=== PATIENT | male | born 1955 | race Caucasian/White ===

== ENCOUNTER 2016-05-03 07:20 | Day surgery (SDC) | payer BC ==
[2016-05-03] MEDS ORDERED: ACETAMINOPHEN 325 MG TABLET (FP) PO ONE (08:00)
[2016-05-03] MEDS ORDERED: DEXAMETHASONE INJECTION 20 MG, DIPHENHYDRAMINE 25 MG in SODIUM CHLORIDE 100 ML IVPB ONE (08:00)
[2016-05-03] MEDS ORDERED: SODIUM CHLORIDE IVPB ONE (08:30)
[2016-05-03] MEDS ORDERED: RITUXIMAB IVPB ONE (08:30)
[2016-05-03 08:38] LABS: MCH 28.2 pg (25.7-33.7); MCHC 32.7 g/dl (32.0-35.9); RDW 15.4 % (11.9-15.9); WHITE BLOOD COUNT 9.9 K/mm3 (4.0-10.0)
[2016-05-03 08:39] LABS: BASOPHIL 1.3 % (0-2.0); EOSINOPHIL 2.1 % (0-4.5); MEAN PLT VOLUME 8.9 fl (7.5-11.1); NEUTROPHILS 66.1 % (42.8-82.8); PLATELET COUNT 170 K/MM3 (134-434)
[2016-05-03 09:37] VITALS: BMI 38.4
[2016-05-03] MEDS ORDERED: SODIUM CHLORIDE 250 ML IV ONE (12:00)
[2016-05-03 18:18] VITALS: PULSE 92
[2016-05-03 18:42] VITALS: BP 159/90; TEMP 98
== END 2016-05-03 18:53 | disposition home or self-care (01) ==
LOC: JONCCHEMO 07:20 → J7W 07:20 → JONCCHEMO 18:53
PROVIDERS: ATTEND Internal Medicine Hematology & Oncology
DX: Z51.11 Encounter for antineoplastic chemotherapy (principal); C83.08 Small cell B-cell lymphoma, lymph nodes of multiple sites; I10 Essential (primary) hypertension; E11.9 Type 2 diabetes mellitus without complications; E78.00 Pure hypercholesterolemia, unspecified; M19.90 Unspecified osteoarthritis, unspecified site
CPT/HCPCS: 96361; 96367; 96413; 96415; J9310; 36415; 85025

== ENCOUNTER 2016-06-28 07:01 | Day surgery (SDC) | payer BC ==
[2016-06-28] MEDS ORDERED: DIPHENHYDRAMINE 25 MG in SODIUM CHLORIDE 50 ML IVPB ONE (08:00)
[2016-06-28] MEDS ORDERED: ACETAMINOPHEN 325 MG TABLET (FP) PO ONE (08:00)
[2016-06-28] MEDS ORDERED: DEXAMETHASONE INJECTION 20 MG in SODIUM CHLORIDE 50 ML IVPB ONE (08:00)
[2016-06-28] MEDS ORDERED: SODIUM CHLORIDE IVPB ONE (08:30)
[2016-06-28] MEDS ORDERED: RITUXIMAB IVPB ONE (08:30)
[2016-06-28 08:39] LABS: MCH 28.5 pg (25.7-33.7); MCHC 33.2 g/dl (32.0-35.9); MEAN CELL VOLUME 85.7 fl (80-96); MEAN PLT VOLUME 9.2 fl (7.5-11.1); PLATELET COUNT 200 K/MM3 (134-434); RDW 15.4 % (11.9-15.9); WHITE BLOOD COUNT 8.2 K/mm3 (4.0-10.0)
[2016-06-28 10:16] LABS: PLATELET ESTIMATE ADEQUATE (NORMAL)
[2016-06-28 10:38] LABS: CALCIUM 9.9 mg/dL (8.5-10.1)
[2016-06-28 10:44] LABS: BILIRUBIN,DIRECT 0.1 mg/dL (0.0-0.2); BILIRUBIN,TOTAL 0.6 mg/dL (0.2-1.0); TOT PROT 6.9 g/dl (6.4-8.2); URIC ACID 5.5 mg/dL (2.6-7.2)
[2016-06-28] MEDS ORDERED: SODIUM CHLORIDE 250 ML IV ONE (12:54)
[2016-06-28] MEDS ORDERED: INSULIN (NOVOLOG) ASPART 100 UNITS/ML 10ML VIAL SQ ONE (14:45)
[2016-06-28 18:20] VITALS: BP 142/76; PULSE 78; TEMP 98.4
== END 2016-06-28 18:45 | disposition home or self-care (01) ==
LOC: JONCCHEMO 07:01 → J7W 09:36 → JONCCHEMO 18:45
PROVIDERS: ATTEND Internal Medicine Hematology & Oncology
PROC: 3E03305 Introduction of Other Antineoplastic into Peripheral Vein, Percutaneous Approach (ICD-10-PCS; principal; 2016-06-28)
PROC: 3E033GC Introduction of Other Therapeutic Substance into Peripheral Vein, Percutaneous Approach (ICD-10-PCS; 2016-06-28)
PROC: 3E0337Z Introduction of Electrolytic and Water Balance Substance into Peripheral Vein, Percutaneous Approach (ICD-10-PCS; 2016-06-28)
DX: Z51.11 Encounter for antineoplastic chemotherapy (principal); C83.08 Small cell B-cell lymphoma, lymph nodes of multiple sites
CPT/HCPCS: 96375; 96413; 96415; J1100; J1200; J9310; 36415; 80048; 80076; 83615; 84550; 85025; 96360; 96367

== ENCOUNTER 2016-08-24 07:22 | Day surgery (SDC) | payer BC ==
[2016-08-24 09:30] LABS: EOSINOPHIL 1.3 % (0-4.5); MCH 28.9 pg (25.7-33.7); MCHC 33.9 g/dl (32.0-35.9); MEAN CELL VOLUME 85.3 fl (80-96); MEAN PLT VOLUME 8.7 fl (7.5-11.1); NEUTROPHILS 66.4 % (42.8-82.8); PLATELET COUNT 223 K/MM3 (134-434); RDW 15.1 % (11.9-15.9); WHITE BLOOD COUNT 9.1 K/mm3 (4.0-10.0)
[2016-08-24] MEDS ORDERED: DIPHENHYDRAMINE 25 MG in SODIUM CHLORIDE 50 ML IVPB ONE (10:00)
[2016-08-24] MEDS ORDERED: SODIUM CHLORIDE 250 ML IV ONE (10:00)
[2016-08-24] MEDS ORDERED: ACETAMINOPHEN 325 MG TABLET (FP) PO ONE (10:00)
[2016-08-24] MEDS ORDERED: DEXAMETHASONE INJECTION 20 MG in SODIUM CHLORIDE 50 ML IVPB ONE (10:00)
[2016-08-24 10:01] LABS: ALBUMIN 4.3 g/dl (3.4-5.0); ALK PHOS 88 U/L (45-117); ANION GAP 11 (8-16); BILIRUBIN,DIRECT 0.2 mg/dL (0.0-0.2); BILIRUBIN,TOTAL 0.8 mg/dL (0.2-1.0); CALCIUM 10.7 mg/dL (8.5-10.1); CO2 24 mmol/L (21-32); COCKROFT - GAULT 101; CREATININE 1.2 mg/dL (0.7-1.3); GLUCOSE,RANDOM 164 mg/dL (74-106); LDH 166 U/L (87-241); SGOT/AST 37 U/L (15-37); SGPT/ALT 43 U/L (12-78); TOT PROT 7.2 g/dl (6.4-8.2); URIC ACID 6.5 mg/dL (2.6-7.2)
[2016-08-24] MEDS ORDERED: SODIUM CHLORIDE IVPB ONE (10:30)
[2016-08-24] MEDS ORDERED: RITUXIMAB IVPB ONE (10:30)
[2016-08-24] MEDS ORDERED: amLODIPine BESYLATE 5 MG TABLET (FP) PO ONE (12:30)
[2016-08-24 17:21] VITALS: TEMP 98.5
[2016-08-24 19:07] VITALS: BP 124/74; PULSE 73
== END 2016-08-24 20:16 | disposition home or self-care (01) ==
LOC: JONCCHEMO 07:22 → J7W 11:25 → JONCCHEMO 20:16
PROVIDERS: ATTEND Internal Medicine Hematology & Oncology
PROC: 3E04305 Introduction of Other Antineoplastic into Central Vein, Percutaneous Approach (ICD-10-PCS; principal; 2016-08-24)
PROC: 3E043GC Introduction of Other Therapeutic Substance into Central Vein, Percutaneous Approach (ICD-10-PCS; 2016-08-24)
PROC: 3E0437Z Introduction of Electrolytic and Water Balance Substance into Central Vein, Percutaneous Approach (ICD-10-PCS; 2016-08-24)
DX: Z51.11 Encounter for antineoplastic chemotherapy (principal); C83.08 Small cell B-cell lymphoma, lymph nodes of multiple sites
CPT/HCPCS: 36415; 80053; 80076; 82784; 83615; 84550; 85025; 96360; 96361; 96367; 96413; 96415; J9310

== ENCOUNTER 2016-10-19 07:30 | Day surgery (SDC) | payer BC ==
[2016-10-19] MEDS ORDERED: DIPHENHYDRAMINE 25 MG in SODIUM CHLORIDE 50 ML IVPB ONE (08:00)
[2016-10-19] MEDS ORDERED: ACETAMINOPHEN 325 MG TABLET (FP) PO ONE (08:00)
[2016-10-19] MEDS ORDERED: DEXAMETHASONE INJECTION 20 MG in SODIUM CHLORIDE 50 ML IVPB ONE (08:00)
[2016-10-19] MEDS ORDERED: SODIUM CHLORIDE IVPB ONE (08:30)
[2016-10-19] MEDS ORDERED: RITUXIMAB IVPB ONE (08:30)
[2016-10-19 09:19] LABS: BASOPHIL 0.5 % (0-2.0); EOSINOPHIL 1.7 % (0-4.5); MCHC 33.8 g/dl (32.0-35.9); MEAN CELL VOLUME 85.8 fl (80-96); MEAN PLT VOLUME 8.5 fl (7.5-11.1); NEUTROPHILS 62.6 % (42.8-82.8); PLATELET COUNT 190 K/MM3 (134-434); WHITE BLOOD COUNT 8.1 K/mm3 (4.0-10.0)
[2016-10-19 09:48] LABS: ALBUMIN 4.2 g/dl (3.4-5.0); ALK PHOS 92 U/L (45-117); ANION GAP 8 (8-16); BILIRUBIN,DIRECT 0.2 mg/dL (0.0-0.2); BILIRUBIN,TOTAL 0.7 mg/dL (0.2-1.0); CO2 26 mmol/L (21-32); CREATININE 1.1 mg/dL (0.7-1.3); GLUCOSE,RANDOM 186 mg/dL (74-106); MAGNESIUM 2.4 mg/dL (1.8-2.4); SGOT/AST 34 U/L (15-37); SGPT/ALT 51 U/L (12-78); TOT PROT 7.1 g/dl (6.4-8.2)
[2016-10-19] MEDS ORDERED: SODIUM CHLORIDE 250 ML IV ONE (12:54)
[2016-10-19 18:21] VITALS: BP 158/98; PULSE 69; TEMP 98
== END 2016-10-19 18:00 | disposition home or self-care (01) ==
LOC: JONCCHEMO 07:30 → J7W 10:18 → JONCCHEMO 18:00
PROVIDERS: ATTEND Internal Medicine Hematology & Oncology
DX: Z51.11 Encounter for antineoplastic chemotherapy (principal); C83.08 Small cell B-cell lymphoma, lymph nodes of multiple sites
CPT/HCPCS: 36415; 80053; 80076; 83735; 85025; 96361; 96367; 96375; 96413; 96415; J9310

== ENCOUNTER 2016-12-14 07:20 | Day surgery (SDC) | payer BC ==
[2016-12-14] MEDS ORDERED: SODIUM CHLORIDE 250 ML IV ONE (08:00)
[2016-12-14] MEDS ORDERED: DEXAMETHASONE INJECTION 20 MG in SODIUM CHLORIDE 50 ML IVPB ONE (08:30)
[2016-12-14] MEDS ORDERED: ACETAMINOPHEN 325 MG TABLET (FP) PO ONE (08:30)
[2016-12-14] MEDS ORDERED: DIPHENHYDRAMINE 25 MG in SODIUM CHLORIDE 50 ML IVPB ONE (08:30)
[2016-12-14] MEDS ORDERED: RITUXIMAB IVPB ONE (09:00)
[2016-12-14] MEDS ORDERED: SODIUM CHLORIDE IVPB ONE (09:00)
[2016-12-14 10:16] LABS: BASOPHIL 0.5 % (0-2.0); EOSINOPHIL 2.8 % (0-4.5); MCH 28.8 pg (25.7-33.7); MCHC 32.6 g/dl (32.0-35.9); MEAN CELL VOLUME 88.2 fl (80-96); MEAN PLT VOLUME 8.9 fl (7.5-11.1); NEUTROPHILS 58.9 % (42.8-82.8); PLATELET COUNT 239 K/MM3 (134-434); RDW 15.1 % (11.9-15.9); WHITE BLOOD COUNT 7.1 K/mm3 (4.0-10.0)
[2016-12-14 10:42] LABS: ALBUMIN 4.2 g/dl (3.4-5.0); ANION GAP 7 (8-16); BILIRUBIN,DIRECT 0.1 mg/dL (0.0-0.2); BILIRUBIN,TOTAL 0.5 mg/dL (0.2-1.0); CALCIUM 10.8 mg/dL (8.5-10.1); CO2 27 mmol/L (21-32); CREATININE 1.1 mg/dL (0.7-1.3); GLUCOSE,RANDOM 160 mg/dL (74-106); MAGNESIUM 2.4 mg/dL (1.8-2.4); SGOT/AST 27 U/L (15-37); SGPT/ALT 37 U/L (12-78)
[2016-12-14 10:44] LABS: ALK PHOS 103 U/L (45-117); TOT PROT 7.2 g/dl (6.4-8.2)
[2016-12-14] MEDS ORDERED: amLODIPine BESYLATE 5 MG TABLET (FP) PO SCH (11:15)
[2016-12-14 11:56] LABS: URIC ACID 5.6 mg/dL (2.6-7.2)
[2016-12-15 06:07] LABS: HEP B SURFACE AB Non Reactive (.)
[2016-12-19 18:31] VITALS: BP 138/79; PULSE 89; TEMP 98.5
== END 2016-12-14 19:08 | disposition home or self-care (01) ==
LOC: JONCCHEMO 07:20 → J7W 10:51 → JONCCHEMO 19:08
PROVIDERS: ATTEND Internal Medicine Hematology & Oncology
DX: Z51.11 Encounter for antineoplastic chemotherapy (principal); C83.08 Small cell B-cell lymphoma, lymph nodes of multiple sites
CPT/HCPCS: 36415; 80053; 80076; 82232; 83615; 83735; 84550; 85025; 85651; 86704; 86706; 86803; 96361; 96375; 96413; 96415; J9310

== ENCOUNTER 2017-01-23 12:21 | Inpatient (IN) | payer BC ==
--- NOTE | 2017-01-23 13:16 | PDOC ---
History of Present Illness <Mora Paz - Last Filed: 01/23/17 14:58> - History of Present Illness Initial Comments: 01/23/17 15:02 61 y/o M with a PMHx of lymphoma (last chemo was 1.5 months ago), HTN, IDDM, pancreatitis, arthritis, spinal stenosis presents to the ED with epigastric pain for one day. Patient describes the pain this morning as a sharp non radiating pain. Patient reports associated one episode of NBNB vomiting. He now reports the current pain as a dull non-radiating pain. Patients last BM was yesterday morning, was normal. Patient reports the pain is similar to his last episode of pancreatitis. Patient did not take any of his medications today with the exception of his insulin. Denies diarrhea, constipation. Denies back pain, dysuria, hematuria. Denies fever, chills. Denies CP, SOB, weakness PCP: Dr. Alden Izaguirre Oncologist: Dr. Artemio Marie Past Surgeries: cholecystectomy SHx: no alcohol, tobacco, drug use <Gracy Snow - Last Filed: 01/23/17 15:42> - General Chief Complaint: Pain, Acute Stated Complaint: ABD PAIN Time Seen by Provider: 01/23/17 13:16 Past History - Past Medical History Cancer: (Yes; lymphoma) Dementia: No Diabetes: Yes HTN: Yes - Immunization History Immunization Up to Date: Yes - Suicide/Smoking/Psychosocial Hx Smoking Status: No Smoking History: Former smoker Have you smoked in the past 12 months: No Number of Cigarettes Smoked Daily: 0 Information on smoking cessation initiated: No Hx Alcohol Use: Yes (OCCASIONAL) Drug/Substance Use Hx: No Substance Use Type: None Hx Substance Use Treatment: No <Mora Paz - Last Filed: 01/23/17 14:58> <Gracy Snow - Last Filed: 01/23/17 15:42> - Past Medical History Allergies/Adverse Reactions: Allergies Allergy/AdvReac Type Severity Reaction Status Date / Time No Known Allergies Allergy Verified 01/23/17 12:32 Home Medications: Ambulatory Orders Amlodipine Besylate [Norvasc -] 7.5 mg PO DAILY 01/23/17 Celecoxib [Celebrex] 100 mg PO BID 01/23/17 Cholecalciferol (Vitamin D3) [Vitamin D3] 2,000 unit PO DAILY 01/23/17 Insulin (Levemir) [Levemir Flexpen -] 10 units SQ DAILY 01/23/17 Insulin (Levemir) [Levemir Flexpen -] 20 units SQ HS 01/23/17 Insulin Aspart [Novolog] 100 unit SQ TID 01/23/17 Losartan Potassium 50 mg PO DAILY 01/23/17 Metformin HCl 500 mg PO DAILY 01/23/17 Review of Systems - Review of Systems Comments:: 01/23/17 15:02 GENERAL/CONSTITUTIONAL: No fever or chills. No weakness. HEAD, EYES, EARS, NOSE AND THROAT: No change in vision. No ear pain or discharge. No sore throat. GASTROINTESTINAL: (+) vomiting, epigastric pain. No diarrhea or constipation. GENITOURINARY: No dysuria, frequency, or change in urination. CARDIOVASCULAR: No chest pain or shortness of breath. RESPIRATORY: No cough, wheezing, or hemoptysis. MUSCULOSKELETAL: No joint or muscle swelling or pain. No neck or back pain. SKIN: No rash NEUROLOGIC: No headache, vertigo, loss of consciousness, or change in strength/ sensation. ENDOCRINE: No increased thirst. No abnormal weight change. HEMATOLOGIC/LYMPHATIC: No anemia, easy bleeding, or history of blood clots. ALLERGIC/IMMUNOLOGIC: No hives or skin allergy. <Gracy Snow - Last Filed: 01/23/17 15:42> *Physical Exam - Vital Signs Last Vital Signs Temp Pulse Resp BP Pulse Ox 99 F 69 19 158/100 96 01/23/17 12:32 01/23/17 12:32 01/23/17 12:32 01/23/17 12:32 01/23/17 12:32 <Mora Paz - Last Filed: 01/23/17 14:58> - Vital Signs Last Vital Signs Temp Pulse Resp BP Pulse Ox 99 F 69 19 158/100 96 01/23/17 12:32 01/23/17 12:32 01/23/17 12:32 01/23/17 12:32 01/23/17 12:32 - Physical Exam Comments: 01/23/17 15:02 GENERAL: Awake, alert, and fully oriented, in no acute distress, malodorous HEAD: No signs of trauma EYES: PERRLA, EOMI, sclera anicteric, conjunctiva clear ENT: Auricles normal inspection, hearing grossly normal, nares patent, oropharynx clear without exudates. Moist mucosa NECK: Normal ROM, supple, no lymphadenopathy, JVD, or masses LUNGS: Breath sounds equal, clear to auscultation bilaterally. No wheezes, and no crackles HEART: Regular rate and rhythm, normal S1 and S2, no murmurs, rubs or gallops ABDOMEN: Epigastric tenderness to palpation. Soft, normoactive bowel sounds. No guarding, no rebound. No masses EXTREMITIES: Normal range of motion, no edema. No clubbing or cyanosis. No cords, erythema, or tenderness BACK: No midline spinal tenderness in cervical/thoracic/lumbar region NEUROLOGICAL: Normal speech, cranial nerves intact, negative pronator drift, 5/ 5 strength in all 4 extremities, normal sensation to light touch in all 4 extremities, normal cerebellar exam, normal gait, normal reflexes and tone SKIN: Warm, Dry, normal turgor, no rashes or lesions noted. <Gracy Snow - Last Filed: 01/23/17 15:42> ED Treatment Course - LABORATORY CBC & Chemistry Diagram: 01/23/17 13:45 01/23/17 13:45 <Mora Paz - Last Filed: 01/23/17 14:58> - LABORATORY CBC & Chemistry Diagram: 01/23/17 13:45 01/23/17 13:45 - ADDITIONAL ORDERS Additional order review: Laboratory Results 01/23/17 13:45 Sodium 138 Potassium 4.5 Chloride 101 Carbon Dioxide 24 Anion Gap 13 BUN 18 Creatinine 1.1 Creat Clearance w eGFR > 60 Random Glucose 197 H D Calcium 9.5 Magnesium 2.0 Total Bilirubin 1.8 H D AST 571 H D ALT 738 H D Alkaline Phosphatase 126 H D Troponin I < 0.02 Total Protein 7.1 Albumin 4.1 Lipase 61114 H 01/23/17 13:45 RBC 5.30 MCV 85.1 MCHC 33.4 RDW 14.5 MPV 8.6 Neutrophils % 84.4 H D Lymphocytes % 7.8 L D Monocytes % 7.4 Eosinophils % 0.1 D Basophils % 0.3 - RADIOLOGY Radiograph Interpretation: 01/23/17 15:40 Abdominal US reported by Dr. Valarie Holley Impression: Examination is quite limited with the patient's body habitus/bowel gas. Hepatomegaly with fatty infiltration versus hepatocellular disease. Please correlate with liver enzymes. Status post cholecystectomy. Minimal dilatation of the common bile duct measuring 11 mm in diameter. Upper limits of normal in a postcholecystectomy patient distended. Nonvisualization of the pancreas and inferior vena cava - Medications Given in the ED: ED Medications Discontinued Medications Generic Name Dose Route Start Last Admin Trade Name Freq PRN Reason Stop Dose Admin Sodium Chloride 1,000 ml 01/23/17 13:42 01/23/17 13:54 Normal Saline - IV 01/23/17 13:43 1,000 ml ONCE ONE Administration <Gracy Snow - Last Filed: 01/23/17 15:42> Medical Decision Making - Medical Decision Making 01/23/17 13:58 61-year-old male history of lymphoma on chemotherapy every 2 months, pancreatitis status post cholecystectomy presents with sudden onset epigastric pain that feels like his previous episode of pancreatitis. Vitals unremarkable. Exam with epigastric tenderness palpation. Differential includes but is not limited to pancreatitis versus gastritis versus retained stone. -labs -ivf -pain control -abd US -reassess 01/23/17 14:59 Labs remarkable for abnormal LFTs, including lipase greater than 10,000. Patient is currently at ultrasound. Concern for possible retained stone and gallstone pancreatitis. In addition to IV bolus, standing fluids ordered, NPO. Case discussed with Dr. Izaguirre who will admit the patient. We have also consult the doctor Talon from GI and are awaiting a call back. <Mora Paz - Last Filed: 01/23/17 14:58> - Medical Decision Making 01/23/17 14:[address] Alden Izaguirre. [phone] 01/23/17 15:[address] Pedro Luis Álvarez. [phone] 01/23/17 15:[address] Reymundo Hernandez [phone] <Gracy Snow - Last Filed: 01/23/17 15:42> *DC/Admit/Observation/Transfer - Discharge Dispostion Admit: Yes - Attestations Physician Attestion: 01/23/17 15:01 Dr. Mora Walter MD, attest that this document has been prepared under my direction and personally reviewed by me in its entirety. I further attest, that it accurately reflects all work, treatment, procedures and medical decision -making performed by me. <Mora Paz - Last Filed: 01/23/17 14:58> - Attestations Scribe Attestion: 01/23/17 15:02 Documentation prepared by Gracy Snow, acting as medical nurse for Mora Paz MD. <Gracy Snow - Last Filed: 01/23/17 15:42> Diagnosis at time of Disposition: Abnormal LFTs, Acute pancreatitis - Discharge Dispostion Condition at time of disposition: Stable - Referrals Referrals: Alden Izaguirre MD [Primary Care Provider] -
[2017-01-23] MEDS ORDERED: SODIUM CHLORIDE 0.9% 500 ML INFUS.BAG IV ONE (13:42)
[2017-01-23 14:12] LABS: BASOPHIL 0.3 % (0-2.0); EOSINOPHIL 0.1 % (0-4.5); MCH 28.4 pg (25.7-33.7); MCHC 33.4 g/dl (32.0-35.9); MEAN CELL VOLUME 85.1 fl (80-96); MEAN PLT VOLUME 8.6 fl (7.5-11.1); NEUTROPHILS 84.4 % (42.8-82.8); PLATELET COUNT 232 K/MM3 (134-434); RDW 14.5 % (11.9-15.9); WHITE BLOOD COUNT 12.2 K/mm3 (4.0-10.0)
[2017-01-23] MEDS ORDERED: morphine CARPU-JECT 4 MG/1 ML DISP.SYRIN IVPUSH ONE ×2 (14:25→18:08)
[2017-01-23 14:40] LABS: ALBUMIN 4.1 g/dl (3.4-5.0); ALK PHOS 126 U/L (45-117); ANION GAP 13 (8-16); BILIRUBIN,TOTAL 1.8 mg/dL (0.2-1.0); CALCIUM 9.5 mg/dL (8.5-10.1); CO2 24 mmol/L (21-32); CREATININE 1.1 mg/dL (0.7-1.3); GLUCOSE,RANDOM 197 mg/dL (74-106); TOT PROT 7.1 g/dl (6.4-8.2)
[2017-01-23 14:43] LABS: TROPONIN I < 0.02 ng/ml (0.00-0.05)
[2017-01-23 14:47] LABS: SGOT/AST 571 U/L (15-37); SGPT/ALT 738 U/L (12-78)
[2017-01-23] MEDS ORDERED: SODIUM CHLORIDE 1,000 ML IV SCH (15:00)
[2017-01-23] MEDS ORDERED: morphine SULFATE 4 MG/ML VIAL ONE ×2 (15:40→18:11)
[2017-01-23] MEDS ORDERED: METRONIDAZOLE 500 MG PREMIXED 100 ML IVPB ONE ×2 (15:49→16:10)
[2017-01-23] MEDS ORDERED: LEVOFLOXACIN 750 MG IVPB 150 ML IVPB ONE ×2 (15:49→16:09)
--- NOTE | 2017-01-23 16:07 | HP ---
Admitting History and Physical - Primary Care Physician PCP: Alden Izaguirre - Admission Chief Complaint: abdominal pain History of Present Illness: Pt states that woke up around 3 AM with epigastric pain, thought that eat something bed last night; as pain was persistent through out the day pt decided to come to ER for evaluation. In ER pt was found to have acute pancreatitis. Pt with similar episode in 2013, due to cholelytiasis, had cholecystectomy (Dr. Brizuela). Pt was seen in ER, in the evening. History Source: Patient Limitations to Obtaining History: No Limitations - Past Medical History Cardiovascular: Yes: HTN Gastrointestinal: Yes: Pancreatitis Heme/Onc: Yes: Other (Lymphoma, receiving Chemo (per Dr. Marie), last Chemo in ) Endocrine: Yes: Diabetes Mellitus - Smoking History Smoking history: Former smoker Have you smoked in the past 12 months: No Aproximately how many cigarettes per day: 0 - Alcohol/Substance Use Hx Alcohol Use: Yes (OCCASIONAL) Home Medications - Allergies Allergies/Adverse Reactions: Allergies Allergy/AdvReac Type Severity Reaction Status Date / Time No Known Allergies Allergy Verified 01/23/17 12:32 - Home Medications Home Medications: Ambulatory Orders Amlodipine Besylate [Norvasc -] 7.5 mg PO DAILY 01/23/17 Celecoxib [Celebrex] 100 mg PO BID 01/23/17 Cholecalciferol (Vitamin D3) [Vitamin D3] 2,000 unit PO DAILY 01/23/17 Insulin (Levemir) [Levemir Flexpen -] 10 units SQ DAILY 01/23/17 Insulin (Levemir) [Levemir Flexpen -] 20 units SQ HS 01/23/17 Insulin Aspart [Novolog] 100 unit SQ TID 01/23/17 Losartan Potassium 50 mg PO DAILY 01/23/17 Metformin HCl 500 mg PO DAILY 01/23/17 Review of Systems - Review of Systems Constitutional: denies: Chills, Fever Eyes: denies: Blurred Vision, Double Vision HENT: denies: Difficult Swallowing, Ear Discharge, Ear Pain, Throat Pain Neck: denies: Decreased ROM, Tenderness Cardiovascular: denies: Chest Pain, Edema, Palpitations Respiratory: denies: Cough, SOB, Wheezing Gastrointestinal: reports: Nausea. denies: Abdominal Pain, Diarrhea Genitourinary: denies: Burning, Discharge, Dysuria, Flank Pain Musculoskeletal: denies: Back Pain, Joint Swelling Integumentary: denies: Bruising, Rash Neurological: denies: Change in LOC, Change in Speech, Numbness Endocrine: denies: Excessive Sweating, Intolerance to Cold Hematology/Lymphatic: denies: Easily Bruised, Excessive Bleeding Psychiatric: denies: Anxiety, Depression Physical Examination Vital Signs: Vital Signs Temperature 99 F 01/23/17 12:32 Pulse Rate 69 01/23/17 12:32 Respiratory Rate 19 01/23/17 12:32 Blood Pressure 158/100 01/23/17 12:32 O2 Sat by Pulse Oximetry (%) 96 01/23/17 12:32 Constitutional: Yes: No Distress, Calm Eyes: Yes: Conjunctiva Clear, EOM Intact, PERRL. No: Sclera Icterus HENT: Yes: Normocephalic. No: Epistaxis, Pharyngeal Erythema, Rhinnorhea Neck: Yes: Trachea Midline. No: Lymphadenopathy Cardiovascular: Yes: Regular Rate and Rhythm, S1, S2 Respiratory: Yes: Regular, CTA Bilaterally. No: Rales Gastrointestinal: Yes: Normal Bowel Sounds, Soft, Tenderness, Epigastrium. No: Tenderness, Rebound ...Rectal Exam: Yes: Deferred Musculoskeletal: No: Back Pain, Joint Stiffness, Joint Swelling Edema: LLE: Trace, RLE: Trace Neurological: Yes: Alert, Oriented, Cran Nerves II-XII Intact Labs: CBC, BMP 01/23/17 13:45 01/23/17 13:45 Lipase > 10K Assessment/Plan (Problem list is not available/ working) Acute Pancreatitis DM HTN Lymphoma Obesity IVF, Pain control GI consult MRCP To hold DM meds, cover with Regular insulin, per BGM AM labs
--- NOTE | 2017-01-23 16:21 | CON.GI ---
Consult Consult Specialty:: GI Referred by:: Dr. Irene Izaguirre Reason for Consultation:: Abdominal Pain - History of Present Illness Chief Complaint: Abdominal Pain History of Present Illness: 61M admitted through [facility] ER for evaluation of abdominal pain. he states that he was in his USOH up until 3AM this morning when he began experiencing upper abdominal pain. The pain was progressively worse promptin his ER visit. He stated that it was similar to the episode in 2014 when he was admitted for suspected pancreatitis and underwent laparoscopic cholecystectomy (gangrenous cholecystitis). MRI/MRCP at that time failed to reveal choledocholithiasis. In terms of new medications he has been taking celebrex for 4-5 days intermittelty secondary to chronic knee and hip pain. He denies current alcohol consumption. The last time that he received Rituxan for treatment of his B cell lymphoma was 1 month ago In ER he was currently receiving normal saline. Epigastric pain continues. 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 [employer] Place of : [facility] History of Recent Travel: No Home Medications - Allergies Allergies/Adverse Reactions: Allergies Allergy/AdvReac Type Severity Reaction Status Date / Time No Known Allergies Allergy Verified 01/23/17 12:32 - Home Medications Home Medications: Ambulatory Orders Amlodipine Besylate [Norvasc -] 7.5 mg PO DAILY 01/23/17 Celecoxib [Celebrex] 100 mg PO BID 01/23/17 Cholecalciferol (Vitamin D3) [Vitamin D3] 2,000 unit PO DAILY 01/23/17 Insulin (Levemir) [Levemir Flexpen -] 10 units SQ DAILY 01/23/17 Insulin (Levemir) [Levemir Flexpen -] 20 units SQ HS 01/23/17 Insulin Aspart [Novolog] 100 unit SQ TID 01/23/17 Losartan Potassium 50 mg PO DAILY 01/23/17 Metformin HCl 500 mg PO DAILY 01/23/17 Family Disease History - Family Disease History Family Disease History: Other: Father ( 90: CHF / Rheumatic heart disease), Mother (Alive: 89: Alzheimer's Dementia), Sister (1 healthy) Other Family History: No children. No family history of colorectal cancer or other GI malignancy Review of Systems - Review of Systems Constitutional: denies: Chills, Unintentional Wgt. Loss Cardiovascular: denies: Chest Pain Respiratory: denies: Cough, SOB Gastrointestinal: reports: Abdominal Pain, Bloating, Nausea. denies: Constipation, Diarrhea, Melena, Rectal Bleeding, Vomiting, Vomiting Blood Physical Exam-GI Vital Signs: Vital Signs Temperature 99 F 01/23/17 1600 Pulse Rate 68 01/23/17 1600 Respiratory Rate 19 01/23/17 1600 Blood Pressure 155/93 01/23/17 1600 O2 Sat by Pulse Oximetry (%) 95% on RA 01/23/17 1600 Constitutional: Yes: Calm Eyes: No: Sclera Icterus Cardiovascular: Yes: Regular Rate and Rhythm. No: Murmur Respiratory: Yes: CTA Bilaterally Gastrointestinal Inspection: Yes: Scars (healed trochar scars, + erythematoous circumscribed area left abdomen) ...Auscultate: Yes: Normoactive Bowel Sounds ...Palpate: Yes: Tenderness (marked TTP epigastrium with voluntary guarding) ...Percussion: No: Tympanitic Edema: Yes (Trace LE edema B/L) Neurological: Yes: Alert, Oriented Labs: CBC, BMP 01/23/17 13:45 01/23/17 13:45 01/23/17 13:45 Lipase 46654 H Hepatic Panel Total Bilirubin 1.8 mg/dL (0.2-1.0) H D 01/23/17 13:45 AST 571 U/L (15-37) H D 01/23/17 13:45 ALT 738 U/L (12-78) H D 01/23/17 13:45 Alkaline Phosphatase 126 U/L (45-117) H D 01/23/17 13:45 Albumin 4.1 g/dl (3.4-5.0) 01/23/17 13:45 12/14/16 09:45 Direct Bilirubin 0.1 D AST 27 D ALT 37 D Alkaline Phosphatase 103 Problem List - Problems (1) Acute pancreatitis Assessment/Plan: Suspect biliary pancreatitis given liver chemistry pattern BISAP score 1 Advise the following: NPO Monitored setting for admission Aggressive IV hydration with caution to cardiopulmonary status. Ordered Lactated ringers at 250cc for 2 liters followed by 200cc per hour. Ordered echocardiogram AM Labs ordered including fasting triglycerides MRI/MRCP of abdomen ordered by ER to evaluate pancreatic parenchyma as well as biliary tract Would cover with antibiotics given immunocompromised stated in case of retained CBD stone. ID consult I did discuss the possibility of the need for ERCP with Mr. Escudero, for further evaluation of biliary tract and for stone extraction if necessary. We discussed potential risks of the procedure like but not limited to bleeding, perforation requiring surgery to repair, infection, sedation medication effects , pancreatitis (5-10% of the cases) all of which could be potentially life threatening. He is amenable to this if it was felt to be necessary. Other recommendations to be determined by clinical course. Code(s): K85.9 - ACUTE PANCREATITIS, UNSPECIFIED * DO NOT USE *
[2017-01-23] MEDS: PIPERACILLIN/TAZOB 3.375 GM 3.375 GM in DEXTROSE 5%-WATER - 50 ML IVPB SCH ×3 (16:30→21:49)
[2017-01-23] MEDS: LACTATED RINGERS SOLUTION 1,000 ML IV SCH ×3 (17:53→21:48)
[2017-01-23] MEDS ORDERED: PIPERACILLIN/TAZOB 3.375 GM 50 ML IVPB ONE (18:20)
--- NOTE | 2017-01-23 18:48 | EKG ---
Test Reason : Blood Pressure : / mmHG Vent. Rate : 070 BPM Atrial Rate : 070 BPM P-R Int : 214 ms QRS Dur : 104 ms QT Int : 406 ms P-R-T Axes : 027 -51 -05 degrees QTc Int : 438 ms SINUS RHYTHM WITH 1ST DEGREE A-V BLOCK WITH PREMATURE ATRIAL COMPLEXES LEFT ANTERIOR HEMIBLOCK ATRIAL ABNORMALITY ABNORMAL ECG WHEN COMPARED WITH ECG OF 13-DEC-2013 09:02, PREMATURE ATRIAL COMPLEXES ARE NOW PRESENT VA INTERVAL HAS INCREASED QRS AXIS REPEAT EKG IF CLINICALLY INDICATED Confirmed by JOAN MERINO MD ([id number]) on 01/23/2017 6:48:06 PM Referred By: Confirmed By:JOAN MERINO MD
[2017-01-23] MEDS ORDERED: FLU VACCINE QUAD 60 MCG/0.5 ML (MDV 17-18) IM ONE (19:30)
[2017-01-23 19:32] VITALS: BMI 36.6
[2017-01-23] MEDS: INSULIN SLIDING SCALE (NOVOLOG) 1 VIAL SQ SCH (21:41)
[2017-01-23] MEDS: morphine SULFATE 4 MG/ML VIAL IVPUSH PRN (21:49)
[2017-01-23] MEDS: LOSARTAN POTASSIUM 50 MG TABLET (FP) PO SCH (21:49)
[2017-01-23] MEDS: amLODIPine BESYLATE 5 MG TABLET (FP) PO SCH (21:49)
[2017-01-24] MEDS ORDERED: LACTATED RINGERS SOLUTION 1,000 ML IV SCH (02:00)
[2017-01-24] MEDS: PIPERACILLIN/TAZOB 3.375 GM 3.375 GM in DEXTROSE 5%-WATER - 50 ML IVPB SCH ×5 (02:41→20:36)
[2017-01-24] MEDS: morphine SULFATE 4 MG/ML VIAL IVPUSH PRN ×3 (02:50→16:33)
[2017-01-24] MEDS: INSULIN SLIDING SCALE (NOVOLOG) 1 VIAL SQ SCH ×4 (08:12→21:16)
[2017-01-24 08:44] LABS: BASOPHIL 0.3 % (0-2.0); EOSINOPHIL 0.3 % (0-4.5); MCHC 33.9 g/dl (32.0-35.9); MEAN CELL VOLUME 85.6 fl (80-96); PLATELET COUNT 181 K/MM3 (134-434); RDW 14.4 % (11.9-15.9); WHITE BLOOD COUNT 14.5 K/mm3 (4.0-10.0)
[2017-01-24 09:28] LABS: INR 1.31 (0.82-1.09); PROTHROMBIN TIME (PATIENT) 14.8 SEC (9.98-11.88)
[2017-01-24 09:43] LABS: ALBUMIN 3.2 g/dl (3.4-5.0); ALK PHOS 103 U/L (45-117); AMYLASE 389 U/L (25-115); ANION GAP 12 (8-16); BILIRUBIN,TOTAL 2.9 mg/dL (0.2-1.0); CALCIUM 8.6 mg/dL (8.5-10.1); CO2 22 mmol/L (21-32); CREATININE 0.7 mg/dL (0.7-1.3); GLUCOSE,RANDOM 158 mg/dL (74-106); SGOT/AST 246 U/L (15-37); TOT PROT 5.8 g/dl (6.4-8.2)
[2017-01-24 09:51] LABS: SGPT/ALT 446 U/L (12-78)
[2017-01-24] MEDS: LOSARTAN POTASSIUM 50 MG TABLET (FP) PO SCH (10:08)
[2017-01-24] MEDS: amLODIPine BESYLATE 5 MG TABLET (FP) PO SCH (10:08)
--- NOTE | 2017-01-24 10:23 | PN ---
Progress Note (short form) - Note Progress Note: ID consult dictated imp/reccd 61 year old obese diabetic man with history of lymphoma last chemo 6 weeks ago admitted with sudden onset of abdominal pain severe with lowgrade fever of 99.5 and chills at home found to have pancreatitis with abnl lfts concern for biliary sepsis blood cultures zosyn MRCP today pancreatitis lymphoma DM Problem List - Problems (1) Biliary sepsis Code(s): K83.0 - CHOLANGITIS (2) Acute pancreatitis Code(s): K85.9 - ACUTE PANCREATITIS, UNSPECIFIED * DO NOT USE * (3) Lymphoma Code(s): C85.90 - NON-HODGKIN LYMPHOMA, UNSPECIFIED, UNSPECIFIED SITE (4) Diabetes mellitus Code(s): E11.9 - TYPE 2 DIABETES MELLITUS WITHOUT COMPLICATIONS
--- NOTE | 2017-01-24 11:03 | PN ---
Progress Note, Physician History of Present Illness: Pt w/o fever, chills, CP, SOB, V. Pt's abd pain is controlled with medication. - Current Medication List Current Medications: Active Medications Amlodipine Besylate (Norvasc -) 7.5 mg PO DAILY HARESH Last Admin: 01/24/17 10:08 Dose: 7.5 mg Lactated Ringer's (Lactated Ringers Solution) 1,000 mls @ 125 mls/hr IV ASDIR HARESH Last Admin: 01/23/17 17:53 Dose: 125 mls/hr Piperacillin Sod/Tazobactam (Sod 3.375 gm/ Dextrose) 50 mls @ 100 mls/hr IVPB Q6H-IV HARESH PRN Reason: Protocol Insulin Aspart (Novolog Vial Sliding Scale -) 1 vial SQ ACHS HARESH PRN Reason: Protocol Last Admin: 01/24/17 08:12 Dose: Not Given Losartan Potassium (Cozaar -) 50 mg PO DAILY HARESH Last Admin: 01/24/17 10:08 Dose: 50 mg Morphine Sulfate (Morphine Sulfate) 4 mg IVPUSH Q3H PRN PRN Reason: PAIN Last Admin: 01/24/17 10:12 Dose: 4 mg - Objective Vital Signs: Vital Signs Temperature 99.0 F 01/24/17 08:14 Pulse Rate 83 01/24/17 08:14 Respiratory Rate 20 01/24/17 08:14 Blood Pressure 136/67 01/24/17 08:14 O2 Sat by Pulse Oximetry (%) 93 L 01/23/17 21:00 Constitutional: Yes: No Distress, Calm Cardiovascular: Yes: Regular Rate and Rhythm, S1, S2 Respiratory: Yes: Regular, CTA Bilaterally. No: Rales Gastrointestinal: Yes: Normal Bowel Sounds, Soft, Tenderness, Epigastrium, Tenderness, Rebound, Other (no guarding) Edema: No Neurological: Yes: Alert, Oriented Labs: CBC, BMP 01/24/17 06:35 01/24/17 06:35 INR, PTT INR 1.31 (0.82-1.09) H 01/24/17 08:35 Problem List - Problems (1) History of pancreatitis Code(s): Z87.19 - PERSONAL HISTORY OF OTHER DISEASES OF THE DIGESTIVE SYSTEM (2) Acute pancreatitis Code(s): K85.9 - ACUTE PANCREATITIS, UNSPECIFIED * DO NOT USE * (3) Lymphoma Code(s): C85.90 - NON-HODGKIN LYMPHOMA, UNSPECIFIED, UNSPECIFIED SITE (4) Diabetes mellitus Code(s): E11.9 - TYPE 2 DIABETES MELLITUS WITHOUT COMPLICATIONS (5) Leukocytosis Code(s): D72.829 - ELEVATED WHITE BLOOD CELL COUNT, UNSPECIFIED Assessment/Plan (Problem list is not available/ working) IVF, ABtx per ID Pain control NPO except meds GI consult appreciated ID consult appreciated MRCP pending To hold DM meds, cover with Regular insulin, per BGM AM labs
--- NOTE | 2017-01-24 11:21 | CONS ---
INFECTIOUS DISEASE CONSULTATION DATE OF CONSULTATION: DATE OF DICTATION: 01/24/2017 REQUESTED BY: Alden Izaguirre MD This is a 61-year-old man who presented yesterday with sudden onset of acute abdominal pain earlier that morning, accompanied by low-grade fever and chills. He had a temperature of 99.5. He had had a similar episode 2 years earlier, when he was found to have gangrenous cholecystitis, and had a laparoscopic cholecystectomy. In the emergency room, he was noted to have elevated lipase and abnormal LFTs. He was admitted with plans today for an MRCP. I am asked to see him for antibiotic recommendations. He continues to have abdominal pain requiring pain medications and his T-maximum in the hospital has been 99.3. He received Zosyn, Levaquin, and Flagyl yesterday and Zosyn earlier this morning. Past medical history is notable for hypertension, osteoarthritis, spinal stenosis, diabetes. He is status post cholecystectomy. He has a history of lymphoma. He has a history of zoster in the past. He has no known drug allergies. MEDICATIONS: He takes Norvasc, Celebrex, vitamin D, insulin, losartan, and metformin as an outpatient. SOCIAL HISTORY: He lives alone. 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 A former smoker. Rare alcohol use. There is no history of any substance use. FAMILY HISTORY: Notable for heart disease in his father, his mother is alive at 89 with dementia, and he has a healthy sister. He has no children. REVIEW OF SYSTEMS: He has been having some intermittent, chronic knee and back pain, but this is unchanged from his baseline. He denies any vomiting. He continues to have midepigastric discomfort since admission. PHYSICAL EXAMINATION: General: He is an obese man in no acute distress, resting comfortably. Vital signs: Temperature currently is 99, pulse of 83, blood pressure 136/67, respiratory rate is 20. HEENT: He is normocephalic. His eyes are anicteric. Neck: Supple. He has some submandibular cervical adenopathy. Lungs: Clear to auscultation. Heart: Regular rate and rhythm. Abdomen: Soft. It is not distended. He has midepigastric discomfort to palpation. He has some angulo that he relates to his insulin injections. Extremities: Without edema. His labs are notable for a white count of 14.5 today, 12.2 before, hemoglobin is 13.8, platelets are 181. His INR is 1.3. BUN and creatinine are 13 and 0.7. Total bilirubin of 2.9, AST of 246, ALT of 443, lipase this morning has improved from 10,000 to 2406. No cultures have been sent and he is scheduled for an MRCP today. 1. In summary, this is a 61-year-old man with lymphoma admitted for pancreatitis on concern for possible biliary sepsis and concern for retained CBD stone. Would obtain blood cultures. Would continue Zosyn and await his MRCP. He is being followed closely by GI. 2. History of lymphoma on Rituxan. 3. History of diabetes. DION ECHEVERRIA M.D. [id number]
--- NOTE | 2017-01-24 12:09 | PN ---
GI Progress Note Subjective: No acute events Fluids @ 125 cc/hr. Had been ordered for 200cc/hr States feeling better overall. - Objective Vital Signs: Vital Signs Temperature 99.0 F 01/24/17 08:14 Pulse Rate 83 01/24/17 08:14 Respiratory Rate 20 01/24/17 08:14 Blood Pressure 136/67 01/24/17 08:14 O2 Sat by Pulse Oximetry (%) 93 L 01/23/17 21:00 Constitutional: Calm Eyes: No: Sclera Icterus Cardiovascular: Yes: Regular Rate and Rhythm Respiratory: Yes: CTA Bilaterally Gastrointestinal Inspection: No: Distention ...Auscultate: Yes: Normoactive Bowel Sounds ...Palpate: Yes: Tenderness (Improved upper abdominal tenderness to palpation) ...Percussion: No: Tympanitic Edema: Yes (trace LE edema) Neurological: Yes: Alert, Oriented Labs: CBC, BMP 01/24/17 06:35 01/24/17 06:35 INR 1.31 (0.82-1.09) H 01/24/17 08:35 01/23/17 01/23/17 01/24/17 13:45 13:45 06:35 Total Bilirubin 1.8 H D 2.9 H D AST 571 H D 246 H D ALT 738 H D 446 H D Alkaline Phosphatase 126 H D 103 C-Reactive Protein Total Amylase 908 H D 389 H D Lipase 44458 H 2406 H 01/24/17 06:35 Total Bilirubin AST ALT Alkaline Phosphatase C-Reactive Protein 8.9 H Total Amylase Lipase 01/24/17 06:35 Triglycerides 94 D - ....Imaging Ultrasound: Report Reviewed (11mm CBD, fatty liver) Problem List - Problems (1) Acute pancreatitis Assessment/Plan: Suspected gallstone pancreatitis Overall clinical improvement: Continue IV hydration: 200cc/hr Lactated Ringers Awaiting MRCP If pain conitinues to improve, trial of clear liquids for dinner Code(s): K85.9 - ACUTE PANCREATITIS, UNSPECIFIED * DO NOT USE * Qualifiers: Pancreatitis type: biliary Acute pancreatitis complication: unspecified Qualified Code(s): K85.10 - Biliary acute pancreatitis without necrosis or infection
[2017-01-24] MEDS: LACTATED RINGERS SOLUTION 1,000 ML IV SCH ×2 (12:13→16:49)
[2017-01-24] MEDS: LACTATED RINGERS SOLUTION 1,000 ML/1,000 ML INFUS.BAG IV SCH (21:14)
[2017-01-25] MEDS: PIPERACILLIN/TAZOB 3.375 GM 3.375 GM in DEXTROSE 5%-WATER - 50 ML IVPB SCH ×4 (02:50→21:46)
[2017-01-25] MEDS: INSULIN SLIDING SCALE (NOVOLOG) 1 VIAL SQ SCH ×4 (06:45→21:58)
[2017-01-25 08:35] LABS: BASOPHIL 0.4 % (0-2.0); EOSINOPHIL 0.6 % (0-4.5); MCH 28.7 pg (25.7-33.7); MCHC 33.1 g/dl (32.0-35.9); MEAN CELL VOLUME 86.7 fl (80-96); NEUTROPHILS 82.7 % (42.8-82.8); PLATELET COUNT 169 K/MM3 (134-434); RDW 14.6 % (11.9-15.9); WHITE BLOOD COUNT 16.6 K/mm3 (4.0-10.0)
[2017-01-25 08:37] LABS: MCH 28.8 pg (25.7-33.7); MCHC 33.4 g/dl (32.0-35.9); MEAN CELL VOLUME 86.3 fl (80-96); PLATELET COUNT 172 K/MM3 (134-434); RDW 14.2 % (11.9-15.9); WHITE BLOOD COUNT 16.8 K/mm3 (4.0-10.0)
[2017-01-25 09:11] LABS: ALK PHOS 107 U/L (45-117); AMYLASE 134 U/L (25-115); ANION GAP 9 (8-16); BILIRUBIN,TOTAL 4.8 mg/dL (0.2-1.0); CALCIUM 8.4 mg/dL (8.5-10.1); CO2 25 mmol/L (21-32); CREATININE 0.7 mg/dL (0.7-1.3); GLUCOSE,RANDOM 145 mg/dL (74-106); SGOT/AST 118 U/L (15-37); SGPT/ALT 290 U/L (12-78); TOT PROT 5.6 g/dl (6.4-8.2)
--- NOTE | 2017-01-25 10:06 | PN ---
Progress Note, Physician History of Present Illness: Pt w/o fever, chills, CP, SOB, V. Pt's abd pain is controlled with medication, feels a little better today. - Current Medication List Current Medications: Active Medications Lactated Ringer's (Lactated Ringers Solution) 1,000 mls @ 125 mls/hr IV ASDIR HARESH Last Admin: 01/24/17 16:49 Dose: Not Given Piperacillin Sod/Tazobactam (Sod 3.375 gm/ Dextrose) 50 mls @ 100 mls/hr IVPB Q6H-IV HARESH PRN Reason: Protocol Last Admin: 01/25/17 02:50 Dose: 100 mls/hr Lactated Ringer's (Lactated Ringers Solution) 1,000 ml in 1,000 mls @ 150 mls/ hr IV ASDIR HARESH Last Admin: 01/24/17 21:14 Dose: 150 mls/hr Insulin Aspart (Novolog Vial Sliding Scale -) 1 vial SQ ACHS [facility]ESH PRN Reason: Protocol Last Admin: 01/25/17 06:45 Dose: Not Given Losartan Potassium (Cozaar -) 50 mg PO DAILY [facility] Last Admin: 01/24/17 10:08 Dose: 50 mg Morphine Sulfate (Morphine Sulfate) 4 mg IVPUSH Q3H PRN PRN Reason: PAIN Last Admin: 01/24/17 16:33 Dose: 4 mg - Objective Vital Signs: Vital Signs Temperature 98.8 F 01/25/17 06:00 Pulse Rate 77 01/25/17 06:00 Respiratory Rate 20 01/25/17 06:00 Blood Pressure 161/76 01/25/17 06:00 O2 Sat by Pulse Oximetry (%) 96 01/24/17 21:00 Constitutional: Yes: No Distress, Calm Cardiovascular: Yes: Regular Rate and Rhythm, S1, S2 Respiratory: Yes: Regular, CTA Bilaterally. No: Rales Gastrointestinal: Yes: Normal Bowel Sounds, Soft, Tenderness, Epigastrium, Other (No guarding). No: Tenderness, Rebound Edema: LLE: Trace, RLE: Trace Neurological: Yes: Alert, Oriented Labs: CBC, BMP 01/25/17 07:30 INR, PTT INR 1.31 (0.82-1.09) H 01/24/17 08:35 Problem List - Problems (1) History of pancreatitis Code(s): Z87.19 - PERSONAL HISTORY OF OTHER DISEASES OF THE DIGESTIVE SYSTEM (2) Acute pancreatitis Code(s): K85.9 - ACUTE PANCREATITIS, UNSPECIFIED * DO NOT USE * Qualifiers: Pancreatitis type: biliary Acute pancreatitis complication: unspecified Qualified Code(s): K85.10 - Biliary acute pancreatitis without necrosis or infection (3) Lymphoma Code(s): C85.90 - NON-HODGKIN LYMPHOMA, UNSPECIFIED, UNSPECIFIED SITE (4) Diabetes mellitus Code(s): E11.9 - TYPE 2 DIABETES MELLITUS WITHOUT COMPLICATIONS (5) Leukocytosis Code(s): D72.829 - ELEVATED WHITE BLOOD CELL COUNT, UNSPECIFIED Assessment/Plan IVF, Abtx per ID Pain control Trial of clear liquids GI consult appreciated ID consult appreciated MRCP report was reviewd, still might need ERCP To hold DM meds, cover with Regular insulin, per BGM. TO f/u with GI AM labs
[2017-01-25] MEDS: LOSARTAN POTASSIUM 50 MG TABLET (FP) PO SCH (10:10)
[2017-01-25] MEDS: amLODIPine BESYLATE 5 MG TABLET (FP) PO SCH (10:10)
[2017-01-25] MEDS: amLODIPine BESYLATE 10 MG TABLET (FP) PO SCH (10:11)
[2017-01-25] MEDS ORDERED: PT OWN MED DRAWER 7, Y5N ONE (14:57)
[2017-01-25] MEDS: morphine SULFATE 4 MG/ML VIAL IVPUSH PRN (15:08)
--- NOTE | 2017-01-25 15:08 | PN ---
GI Progress Note Subjective: No acute events. Abdominal pain improved. tolerating clears - Objective Vital Signs: Vital Signs Temperature 98.8 F 01/25/17 06:00 Pulse Rate 77 01/25/17 06:00 Respiratory Rate 20 01/25/17 06:00 Blood Pressure 161/76 01/25/17 06:00 O2 Sat by Pulse Oximetry (%) 96 01/24/17 21:00 Constitutional: Calm Eyes: No: Sclera Icterus Cardiovascular: Yes: Regular Rate and Rhythm. No: Murmur Respiratory: Yes: CTA Bilaterally Gastrointestinal Inspection: No: Distention ...Auscultate: Yes: Normoactive Bowel Sounds ...Palpate: Yes: Tenderness (Mild TTP upper abdomen) ...Percussion: No: Tympanitic Edema: Yes (trace LE edema b/l) Neurological: Yes: Alert, Oriented Labs: CBC, BMP 01/25/17 07:30 01/25/17 07:30 INR, PTT INR 1.31 (0.82-1.09) H 01/24/17 08:35 Hepatic Panel Total Bilirubin 4.8 mg/dL (0.2-1.0) H D 01/25/17 07:30 AST 118 U/L (15-37) H D 01/25/17 07:30 ALT 290 U/L (12-78) H D 01/25/17 07:30 Alkaline Phosphatase 107 U/L (45-117) 01/25/17 07:30 Albumin 3.0 g/dl (3.4-5.0) L 01/25/17 07:30 Laboratory Tests 01/25/17 07:30 C-Reactive Protein 14.5 H D - ....Imaging MRI: Report Reviewed (Non dilated biliary tract) Problem List - Problems (1) Acute pancreatitis Assessment/Plan: Clinically improved. While transaminases and ALP elevation has improved, bilirubin continues to rise. Per discussion with Dr. Herrera, plan would be for ERCP tomorrow to exclude retained CBD stone not seen on MRCP. Mr. Escudero aware of plan Continue clears IV Abx unil CBD evaluated AM Labs Code(s): K85.9 - ACUTE PANCREATITIS, UNSPECIFIED * DO NOT USE * Qualifiers: Pancreatitis type: biliary Acute pancreatitis complication: unspecified Qualified Code(s): K85.10 - Biliary acute pancreatitis without necrosis or infection
[2017-01-25] MEDS ORDERED: INSULIN (NOVOLOG) ASPART 100 UNITS/ML 10ML VIAL ONE (17:07)
[2017-01-25] MEDS: ACETAMINOPHEN 325 MG TABLET (FP) PO PRN (20:50)
[2017-01-25] MEDS: LACTATED RINGERS SOLUTION 1,000 ML/1,000 ML INFUS.BAG IV SCH (20:51)
[2017-01-25] MEDS: LACTATED RINGERS SOLUTION 1,000 ML IV SCH (20:51)
[2017-01-26] MEDS: PIPERACILLIN/TAZOB 3.375 GM 3.375 GM in DEXTROSE 5%-WATER - 50 ML IVPB SCH ×4 (02:37→21:59)
[2017-01-26] MEDS: INSULIN SLIDING SCALE (NOVOLOG) 1 VIAL SQ SCH ×4 (06:08→22:08)
[2017-01-26 07:43] LABS: MCH 28.6 pg (25.7-33.7); MCHC 33.2 g/dl (32.0-35.9); MEAN CELL VOLUME 86.2 fl (80-96); MEAN PLT VOLUME 9.2 fl (7.5-11.1); PLATELET COUNT 175 K/MM3 (134-434); RDW 14.6 % (11.9-15.9); WHITE BLOOD COUNT 16.9 K/mm3 (4.0-10.0)
[2017-01-26] MEDS ORDERED: INDOMETHACIN 50 MG RECTAL SUPPOSITORY PR ONE (08:00)
[2017-01-26 08:06] LABS: INR 1.26 (0.82-1.09); PROTHROMBIN TIME (PATIENT) 14.2 SEC (9.98-11.88)
[2017-01-26 08:09] LABS: ACTIVATED PTT 31.6 SECONDS (26.9-34.4)
[2017-01-26 08:22] LABS: ALK PHOS 103 U/L (45-117); ANION GAP 11 (8-16); BILIRUBIN,DIRECT 1.5 mg/dL (0.0-0.2); BILIRUBIN,TOTAL 2.7 mg/dL (0.2-1.0); CALCIUM 8.4 mg/dL (8.5-10.1); CO2 24 mmol/L (21-32); CREATININE 0.6 mg/dL (0.7-1.3); GLUCOSE,RANDOM 148 mg/dL (74-106); SGOT/AST 54 U/L (15-37); SGPT/ALT 196 U/L (12-78); TOT PROT 5.8 g/dl (6.4-8.2)
[2017-01-26] MEDS ORDERED: PT OWN MED DRAWER 7, Y5N ONE (09:28)
[2017-01-26] MEDS: amLODIPine BESYLATE 10 MG TABLET (FP) PO SCH (09:28)
[2017-01-26] MEDS: LOSARTAN POTASSIUM 50 MG TABLET (FP) PO SCH (09:28)
[2017-01-26] MEDS: ALLOPURINOL 300 MG TABLET (FP) PO SCH (09:28)
--- NOTE | 2017-01-26 10:29 | PN ---
Progress Note, Physician History of Present Illness: Pt w/o fever, chills, CP, SOB, V. Pt's abd pain is controlled with medication, feels a little better; still not back to normal.. - Current Medication List Current Medications: Active Medications Acetaminophen (Tylenol -) 650 mg PO Q6H PRN PRN Reason: FEVER Last Admin: 01/25/17 20:50 Dose: 650 mg Allopurinol (Zyloprim -) 300 mg PO DAILY [facility] Last Admin: 01/26/17 09:28 Dose: 300 mg Amlodipine Besylate (Norvasc -) 10 mg PO DAILY [facility] Last Admin: 01/26/17 09:28 Dose: 10 mg Lactated Ringer's (Lactated Ringers Solution) 1,000 mls @ 125 mls/hr IV ASDIR HARESH Last Admin: 01/25/17 20:51 Dose: 125 mls/hr Piperacillin Sod/Tazobactam (Sod 3.375 gm/ Dextrose) 50 mls @ 100 mls/hr IVPB Q6H-IV [facility]ESH PRN Reason: Protocol Last Admin: 01/26/17 09:28 Dose: 100 mls/hr Lactated Ringer's (Lactated Ringers Solution) 1,000 ml in 1,000 mls @ 150 mls/ hr IV ASDIR HARESH Last Admin: 01/25/17 20:51 Dose: Not Given Insulin Aspart (Novolog Vial Sliding Scale -) 1 vial SQ ACHS [facility]ESH PRN Reason: Protocol Last Admin: 01/26/17 06:08 Dose: Not Given Losartan Potassium (Cozaar -) 50 mg PO DAILY [facility] Last Admin: 01/26/17 09:28 Dose: 50 mg Morphine Sulfate (Morphine Sulfate) 4 mg IVPUSH Q3H PRN PRN Reason: PAIN Last Admin: 01/25/17 15:08 Dose: 4 mg - Objective Vital Signs: Vital Signs Temperature 98.5 F 01/26/17 06:51 Pulse Rate 78 01/26/17 06:51 Respiratory Rate 20 01/26/17 06:51 Blood Pressure 153/76 01/26/17 06:51 O2 Sat by Pulse Oximetry (%) 96 01/25/17 21:00 Constitutional: Yes: No Distress, Calm Cardiovascular: Yes: Regular Rate and Rhythm, S1, S2 Respiratory: Yes: Regular, CTA Bilaterally Gastrointestinal: Yes: Normal Bowel Sounds, Soft, Tenderness, Tenderness, Epigastrium. No: Tenderness, Rebound Edema: No Neurological: Yes: Alert, Oriented Labs: CBC, BMP 01/26/17 06:00 01/26/17 06:00 INR, PTT INR 1.26 (0.82-1.09) H 01/26/17 06:00 Problem List - Problems (1) History of pancreatitis Code(s): Z87.19 - PERSONAL HISTORY OF OTHER DISEASES OF THE DIGESTIVE SYSTEM (2) Acute pancreatitis Code(s): K85.9 - ACUTE PANCREATITIS, UNSPECIFIED * DO NOT USE * Qualifiers: Pancreatitis type: biliary Acute pancreatitis complication: unspecified Qualified Code(s): K85.10 - Biliary acute pancreatitis without necrosis or infection (3) Lymphoma Code(s): C85.90 - NON-HODGKIN LYMPHOMA, UNSPECIFIED, UNSPECIFIED SITE (4) Diabetes mellitus Code(s): E11.9 - TYPE 2 DIABETES MELLITUS WITHOUT COMPLICATIONS (5) Leukocytosis Code(s): D72.829 - ELEVATED WHITE BLOOD CELL COUNT, UNSPECIFIED Assessment/Plan IVF, Abtx per ID Pain control Trial of clear liquids GI consult appreciated ID consult appreciated MRCP report was reviewd. For ERCP today, To hold DM meds, cover with Regular insulin, per BGM. AM labs
[2017-01-26] MEDS ORDERED: KCL 10 MEQ IVPB 10 MEQ/100 ML INFUS.BAG IVPB SCH (10:30)
[2017-01-26] MEDS ORDERED: POTASSIUM CHLORIDE 20 MEQ in SODIUM CHLORIDE 250 ML IVPB ONE (10:45)
[2017-01-26] MEDS ORDERED: PROPOFOL 20 ML ONE ×3 (13:14)
[2017-01-26] MEDS ORDERED: NEOSTIGMINE METHYLSULFATE 0.5 MG/ML - 10 ML MDV ONE (13:14)
[2017-01-26] MEDS ORDERED: fentaNYL CITRATE 250 MCG/5 ML VIAL ONE (13:14)
[2017-01-26] MEDS ORDERED: GLYCOPYRROLATE 0.2 MG/1 ML VIAL ONE ×3 (13:14)
[2017-01-26] MEDS ORDERED: PHYTONADIONE 10 MG/1 ML AMP IVPB ONE ×3 (14:18→17:00)
[2017-01-26] MEDS ORDERED: LACTATED RINGERS SOLUTION 1,000 ML/1,000 ML INFUS.BAG IV SCH (14:30)
--- NOTE | 2017-01-26 14:33 | PN ---
Progress Note (short form) - Note Progress Note: GI Procedure Note: Please see scanned ERCP report. Two small stone fragments were extracted from the CBD after sphincterotomy. There was bleeding from the sphincterotomy site which required epinephrine injection and stent insertion to control.
--- NOTE | 2017-01-26 16:44 | PN ---
Progress Note (short form) - Note Progress Note: retuerend from ercp s/p sphinterotomy with 2 small stones extracted still some abdominal discomfort Vital Signs Period Temp Pulse Resp BP Sys/Sanchez Pulse Ox Last 24 Hr 98.5 F-100.6 F 77-95 18-20 134-153/71-80 95-100 cor-rrr lungs clear abd soft,nt ext no edema CBC, BMP 01/26/17 06:00 01/26/17 06:00 a/p s/p ERCP- continue zosyn, f/u labs in am pancreatitis lymphoma DM Problem List - Problems (1) Biliary sepsis Code(s): K83.0 - CHOLANGITIS (2) Acute pancreatitis Code(s): K85.9 - ACUTE PANCREATITIS, UNSPECIFIED * DO NOT USE * Qualifiers: Pancreatitis type: biliary Acute pancreatitis complication: unspecified Qualified Code(s): K85.10 - Biliary acute pancreatitis without necrosis or infection (3) Lymphoma Code(s): C85.90 - NON-HODGKIN LYMPHOMA, UNSPECIFIED, UNSPECIFIED SITE (4) Diabetes mellitus Code(s): E11.9 - TYPE 2 DIABETES MELLITUS WITHOUT COMPLICATIONS
[2017-01-26 17:19] LABS: BASOPHIL 0.1 % (0-2.0); EOSINOPHIL 0.7 % (0-4.5); MCH 29.5 pg (25.7-33.7); MCHC 34.2 g/dl (32.0-35.9); MEAN CELL VOLUME 86.3 fl (80-96); MEAN PLT VOLUME 9.2 fl (7.5-11.1); NEUTROPHILS 82.1 % (42.8-82.8); PLATELET COUNT 194 K/MM3 (134-434); RDW 14.2 % (11.9-15.9); WHITE BLOOD COUNT 16.4 K/mm3 (4.0-10.0)
[2017-01-26 17:29] LABS: INR 1.31 (0.82-1.09); PROTHROMBIN TIME (PATIENT) 14.8 SEC (9.98-11.88)
[2017-01-26] MEDS: PANTOPRAZOLE SODIUM 80 MG in SODIUM CHLORIDE 100 ML IVPB SCH (18:35)
[2017-01-26] MEDS: LACTATED RINGERS SOLUTION 1,000 ML/1,000 ML INFUS.BAG IV SCH ×3 (19:00→23:50)
[2017-01-27] MEDS: PANTOPRAZOLE SODIUM 80 MG in SODIUM CHLORIDE 100 ML IVPB SCH ×4 (02:04→21:31)
[2017-01-27] MEDS: PIPERACILLIN/TAZOB 3.375 GM 3.375 GM in DEXTROSE 5%-WATER - 50 ML IVPB SCH ×4 (02:07→21:17)
[2017-01-27] MEDS: INSULIN SLIDING SCALE (NOVOLOG) 1 VIAL SQ SCH ×4 (06:52→21:18)
[2017-01-27] MEDS ORDERED: PT OWN MED DRAWER 7, Y5N ONE ×3 (08:27→16:39)
[2017-01-27 08:56] LABS: ALBUMIN 2.4 g/dl (3.4-5.0); ALK PHOS 87 U/L (45-117); AMYLASE 45 U/L (25-115); ANION GAP 11 (8-16); BILIRUBIN,DIRECT 0.9 mg/dL (0.0-0.2); BILIRUBIN,TOTAL 1.4 mg/dL (0.2-1.0); CALCIUM 7.8 mg/dL (8.5-10.1); CO2 23 mmol/L (21-32); CREATININE 0.9 mg/dL (0.7-1.3); FERRITIN 382.823 ng/ml (16.4-293.9); GLUCOSE,RANDOM 154 mg/dL (74-106); SGOT/AST 45 U/L (15-37); SGPT/ALT 131 U/L (12-78); TOT PROT 4.9 g/dl (6.4-8.2)
[2017-01-27] MEDS: amLODIPine BESYLATE 10 MG TABLET (FP) PO SCH (09:26)
[2017-01-27] MEDS: LOSARTAN POTASSIUM 50 MG TABLET (FP) PO SCH (09:26)
[2017-01-27] MEDS: ALLOPURINOL 300 MG TABLET (FP) PO SCH (09:27)
[2017-01-27 11:09] LABS: MCHC 33.2 g/dl (32.0-35.9); MEAN CELL VOLUME 87.4 fl (80-96); MEAN PLT VOLUME 9.2 fl (7.5-11.1); PLATELET COUNT 224 K/MM3 (134-434); RDW 14.5 % (11.9-15.9); WHITE BLOOD COUNT 16.9 K/mm3 (4.0-10.0)
--- NOTE | 2017-01-27 11:11 | PN ---
Progress Note, Physician History of Present Illness: Awake, alert Seated in bed Tolerating liquids No c/o abdominal pain Mild nausea No vomiting Low gared temp WBC slightly elevated - Current Medication List Current Medications: Active Medications Acetaminophen (Tylenol -) 650 mg PO Q6H PRN PRN Reason: FEVER Last Admin: 01/25/17 20:50 Dose: 650 mg Allopurinol (Zyloprim -) 300 mg PO DAILY [facility] Last Admin: 01/27/17 09:27 Dose: 300 mg Amlodipine Besylate (Norvasc -) 10 mg PO DAILY [facility] Last Admin: 01/27/17 09:26 Dose: 10 mg Piperacillin Sod/Tazobactam (Sod 3.375 gm/ Dextrose) 50 mls @ 100 mls/hr IVPB Q6H-IV HARESH PRN Reason: Protocol Last Admin: 01/27/17 08:32 Dose: 100 mls/hr Pantoprazole Sodium 80 mg/ (Sodium Chloride) 100 mls @ 10 mls/hr IVPB Q10H HARESH PRN Reason: 8 MG/HR Last Admin: 01/27/17 02:04 Dose: 10 mls/hr Lactated Ringer's (Lactated Ringers Solution) 1,000 ml in 1,000 mls @ 125 mls/ hr IV ASDIR [facility] Last Admin: 01/26/17 23:50 Dose: 125 mls/hr Insulin Aspart (Novolog Vial Sliding Scale -) 1 vial SQ ACHS HARESH PRN Reason: Protocol Last Admin: 01/27/17 06:52 Dose: 2 units Losartan Potassium (Cozaar -) 50 mg PO DAILY [facility] Last Admin: 01/27/17 09:26 Dose: 50 mg Morphine Sulfate (Morphine Sulfate) 4 mg IVPUSH Q3H PRN PRN Reason: PAIN Last Admin: 01/25/17 15:08 Dose: 4 mg - Objective Vital Signs: Vital Signs Temperature 99.8 F H 01/27/17 09:25 Pulse Rate 87 01/27/17 09:25 Respiratory Rate 20 01/27/17 09:25 Blood Pressure 118/75 01/27/17 09:25 O2 Sat by Pulse Oximetry (%) 96 01/26/17 21:00 Constitutional: Yes: No Distress, Obese Cardiovascular: Yes: Regular Rate and Rhythm, S1, S2 Respiratory: Yes: CTA Bilaterally Gastrointestinal: Yes: Normal Bowel Sounds, Soft. No: Tenderness Labs: CBC, BMP 01/27/17 06:00 INR, PTT INR 1.31 (0.82-1.09) H 01/26/17 16:30 Assessment/Plan S/P ERCP, stone extraction Biliary sepsis pancreatitis Lymphoma Await BC, repeat CBC Continue zosyn
--- NOTE | 2017-01-27 11:36 | PN ---
GI Progress Note Subjective: GI NOte: Has had two episodes of melena overnight despite Vitamin K. Suspect persistent sphincterotomy site bleeding. I have advised Afred to undergo an upper endoscopy to control the bleeding. Hb has dropped to 8.4, NO pancreatitis - Objective Vital Signs: Vital Signs Temperature 99.8 F H 01/27/17 09:25 Pulse Rate 87 01/27/17 09:25 Respiratory Rate 20 01/27/17 09:25 Blood Pressure 118/75 01/27/17 09:25 O2 Sat by Pulse Oximetry (%) 96 01/26/17 21:00 Laboratory Tests 01/26/17 01/27/17 16:30 10:55 Hgb 12.7 8.4 L D Hct 37.3 25.3 L D Constitutional: Calm ...Auscultate: Yes: Normoactive Bowel Sounds, Other ...Palpate: Yes: Soft, Other (nontender) Labs: CBC, BMP 01/27/17 10:55 01/27/17 06:00 INR, PTT INR 1.31 (0.82-1.09) H 01/26/17 16:30 Problem List - Problems (1) Bleeding from sphincterotomy site Assessment/Plan: Suspect bleeding from the sphincterotomy site. Estevan has singed an informed consent for EGD. Will do immediately. Code(s): K91.841 - POSTPROC HEMOR OF A DGSTV SYS ORG FOLLOWING OTHER PROCEDURE
[2017-01-27] MEDS ORDERED: PROPOFOL 20 ML ONE ×2 (12:01)
[2017-01-27] MEDS ORDERED: ONDANSETRON 4 MG/2 ML VIAL IVPUSH PRN (12:36)
--- NOTE | 2017-01-27 12:49 | PN ---
Progress Note (short form) - Note Progress Note: GI Procedure Note: Please see EGD report in chart. The sphincterotomy site revealed clotted blood without any active bleeding. I believe that the Vitamin K correction of his coagulation system brought the bleeding under control. There was no evidence of gastric or esophageal bleeding. The stent in in good postion. The case had to be done under general anesthesia to protect his airway as he had liquids only 4 hours earlier. Problem List - Problems (1) Bleeding from sphincterotomy site Code(s): K91.841 - POSTPROC HEMOR OF A DGSTV SYS ORG FOLLOWING OTHER PROCEDURE
--- NOTE | 2017-01-27 13:10 | PN ---
Progress Note, Physician History of Present Illness: s/p repeated ERCP for GI. Pt w/o fever, chills, CP, SOB, V. Pt's abd pain is controlled with medication, feels a little better. - Current Medication List Current Medications: Active Medications Acetaminophen (Tylenol -) 650 mg PO Q6H PRN PRN Reason: FEVER Last Admin: 01/25/17 20:50 Dose: 650 mg Allopurinol (Zyloprim -) 300 mg PO DAILY [facility] Last Admin: 01/27/17 09:27 Dose: 300 mg Amlodipine Besylate (Norvasc -) 10 mg PO DAILY [facility] Last Admin: 01/27/17 09:26 Dose: 10 mg Piperacillin Sod/Tazobactam (Sod 3.375 gm/ Dextrose) 50 mls @ 100 mls/hr IVPB Q6H-IV HARESH PRN Reason: Protocol Last Admin: 01/27/17 08:32 Dose: 100 mls/hr Pantoprazole Sodium 80 mg/ (Sodium Chloride) 100 mls @ 10 mls/hr IVPB Q10H HARESH PRN Reason: 8 MG/HR Last Admin: 01/27/17 12:17 Dose: Not Given Lactated Ringer's (Lactated Ringers Solution) 1,000 ml in 1,000 mls @ 125 mls/ hr IV ASDIR HARESH Last Admin: 01/26/17 23:50 Dose: 125 mls/hr Insulin Aspart (Novolog Vial Sliding Scale -) 1 vial SQ ACHS HARESH PRN Reason: Protocol Last Admin: 01/27/17 11:37 Dose: 2 units Losartan Potassium (Cozaar -) 50 mg PO DAILY [facility] Last Admin: 01/27/17 09:26 Dose: 50 mg Morphine Sulfate (Morphine Sulfate) 4 mg IVPUSH Q3H PRN PRN Reason: PAIN Last Admin: 01/25/17 15:08 Dose: 4 mg Ondansetron HCl (Zofran Injection) 4 mg IVPUSH Q6H PRN PRN Reason: NAUSEA AND/OR VOMITING - Objective Vital Signs: Vital Signs Temperature 99.8 F H 01/27/17 09:25 Pulse Rate 87 01/27/17 09:25 Respiratory Rate 20 01/27/17 09:25 Blood Pressure 118/75 01/27/17 09:25 O2 Sat by Pulse Oximetry (%) 97 01/27/17 09:00 Constitutional: Yes: No Distress, Calm Cardiovascular: Yes: Regular Rate and Rhythm, S1, S2 Respiratory: Yes: Regular, CTA Bilaterally. No: Rales Gastrointestinal: Yes: Normal Bowel Sounds, Soft. No: Tenderness Edema: No Neurological: Yes: Alert, Oriented Labs: CBC, BMP 01/27/17 10:55 01/27/17 06:00 INR, PTT INR 1.31 (0.82-1.09) H 01/26/17 16:30 Problem List - Problems (1) History of pancreatitis Code(s): Z87.19 - PERSONAL HISTORY OF OTHER DISEASES OF THE DIGESTIVE SYSTEM (2) Acute pancreatitis Code(s): K85.9 - ACUTE PANCREATITIS, UNSPECIFIED * DO NOT USE * Qualifiers: Pancreatitis type: biliary Acute pancreatitis complication: unspecified Qualified Code(s): K85.10 - Biliary acute pancreatitis without necrosis or infection (3) Lymphoma Code(s): C85.90 - NON-HODGKIN LYMPHOMA, UNSPECIFIED, UNSPECIFIED SITE (4) Diabetes mellitus Code(s): E11.9 - TYPE 2 DIABETES MELLITUS WITHOUT COMPLICATIONS (5) Leukocytosis Code(s): D72.829 - ELEVATED WHITE BLOOD CELL COUNT, UNSPECIFIED (6) GIB (gastrointestinal bleeding) Code(s): K92.2 - GASTROINTESTINAL HEMORRHAGE, UNSPECIFIED Assessment/Plan IVF, Abtx per ID Pain control GI consult appreciated ID consult appreciated MRCP report was reviewd. S/p repeated ERCP, no active bleed; to monitor AM labs To hold DM meds, cover with Regular insulin, per BGM. AM labs
[2017-01-27 15:20] LABS: MCH 28.8 pg (25.7-33.7); MCHC 33.2 g/dl (32.0-35.9); MEAN CELL VOLUME 86.8 fl (80-96); PLATELET COUNT 195 K/MM3 (134-434); RDW 14.3 % (11.9-15.9); WHITE BLOOD COUNT 13.5 K/mm3 (4.0-10.0)
[2017-01-27 15:56] LABS: INR 1.19 (0.82-1.09); PROTHROMBIN TIME (PATIENT) 13.5 SEC (9.98-11.88)
[2017-01-27] MEDS: ACETAMINOPHEN 325 MG TABLET (FP) PO PRN (16:23)
[2017-01-27] MEDS: LACTATED RINGERS SOLUTION 1,000 ML/1,000 ML INFUS.BAG IV SCH (21:31)
[2017-01-28] MEDS: PIPERACILLIN/TAZOB 3.375 GM 3.375 GM in DEXTROSE 5%-WATER - 50 ML IVPB SCH ×4 (02:34→20:51)
[2017-01-28] MEDS: ACETAMINOPHEN 325 MG TABLET (FP) PO PRN ×2 (02:38→14:32)
[2017-01-28] MEDS: INSULIN SLIDING SCALE (NOVOLOG) 1 VIAL SQ SCH ×4 (06:16→22:03)
[2017-01-28] MEDS: PANTOPRAZOLE SODIUM 80 MG in SODIUM CHLORIDE 100 ML IVPB SCH ×2 (07:51→17:51)
[2017-01-28] MEDS: LACTATED RINGERS SOLUTION 1,000 ML/1,000 ML INFUS.BAG IV SCH (07:51)
[2017-01-28 08:06] LABS: SERUM IRON 29 ug/dL (38-169); TOTAL IRON BINDING CAPACITY 166 ug/dL (250-450); UIBC 137 ug/dL (111-343)
[2017-01-28 08:20] LABS: BASOPHIL 0.5 % (0-2.0); EOSINOPHIL 3.2 % (0-4.5); MCH 28.9 pg (25.7-33.7); MCHC 33.4 g/dl (32.0-35.9); MEAN CELL VOLUME 86.4 fl (80-96); MEAN PLT VOLUME 9.1 fl (7.5-11.1); NEUTROPHILS 74.7 % (42.8-82.8); PLATELET COUNT 188 K/MM3 (134-434); RDW 14.6 % (11.9-15.9); WHITE BLOOD COUNT 13.2 K/mm3 (4.0-10.0)
[2017-01-28 08:32] LABS: INR 1.18 (0.82-1.09); PROTHROMBIN TIME (PATIENT) 13.3 SEC (9.98-11.88)
[2017-01-28 08:59] LABS: ALBUMIN 2.3 g/dl (3.4-5.0); AMYLASE 38 U/L (25-115); ANION GAP 7 (8-16); CALCIUM 7.7 mg/dL (8.5-10.1); CO2 27 mmol/L (21-32); CREATININE 0.7 mg/dL (0.7-1.3); GLUCOSE,RANDOM 149 mg/dL (74-106); SGOT/AST 31 U/L (15-37); SGPT/ALT 90 U/L (12-78); TOT PROT 4.6 g/dl (6.4-8.2)
[2017-01-28 09:00] LABS: ALK PHOS 77 U/L (45-117)
[2017-01-28] MEDS: LOSARTAN POTASSIUM 50 MG TABLET (FP) PO SCH (10:07)
[2017-01-28] MEDS: ALLOPURINOL 300 MG TABLET (FP) PO SCH (10:07)
[2017-01-28] MEDS: amLODIPine BESYLATE 10 MG TABLET (FP) PO SCH (10:07)
--- NOTE | 2017-01-28 10:56 | PN ---
Progress Note (short form) - Note Progress Note: POD #1 - s/p EGD under general anesthesia. Pt. doing well, resting comfortably in bed. No complaints. No apparent anesthetic complications noted. Continue current care.
--- NOTE | 2017-01-28 11:31 | PN ---
GI Progress Note Subjective: Gi NOte: Had another marroon stool today but only small volume. He did require 1 unit PRBCs for Hb drop below 8. I believe that he is passing old blood and will advance his diet to solids. Jaundice is resolved - Objective Vital Signs: Vital Signs Temperature 98.3 F 01/28/17 11:05 Pulse Rate 77 01/28/17 11:05 Respiratory Rate 18 01/28/17 11:05 Blood Pressure 119/66 01/28/17 11:05 O2 Sat by Pulse Oximetry (%) 100 01/27/17 13:30 Laboratory Tests 01/26/17 01/27/17 01/27/17 06:00 10:55 14:40 WBC Hgb 13.3 8.4 L D 7.6 L Plt Count PT with INR INR BUN Creatinine Total Bilirubin AST ALT Alkaline Phosphatase Lipase 01/28/17 01/28/17 01/28/17 06:00 06:00 06:00 WBC 13.2 H Hgb 8.1 L Plt Count 188 PT with INR 13.30 H INR 1.18 H BUN 11 D Creatinine 0.7 D Total Bilirubin 1.0 D AST 31 D ALT 90 H D Alkaline Phosphatase 77 Lipase 137 Constitutional: Calm Cardiovascular: Yes: Regular Rate and Rhythm Respiratory: Yes: CTA Bilaterally ...Auscultate: Yes: Normoactive Bowel Sounds ...Palpate: Yes: Soft, Other (nontender) Labs: CBC, BMP 01/28/17 06:00 01/28/17 06:00 INR, PTT INR 1.18 (0.82-1.09) H 01/28/17 06:00 Problem List - Problems (1) Bleeding from sphincterotomy site Assessment/Plan: Suspect that bleeding from the sphincterotomy site has resolved but he did require 1 unit PRBCs. I explained that he will need iron but do not want to start until I see brown stools. I also reminded Estevan that he will need a repeat ERCP in 3 months to remove his stent and gave him my business card. Will advance diet Code(s): K91.841 - POSTPROC HEMOR OF A DGSTV SYS ORG FOLLOWING OTHER PROCEDURE (2) Pancreatitis Assessment/Plan: Biliary pancreatitis resolved. Did not recur post ERCP Code(s): K85.9 - ACUTE PANCREATITIS, UNSPECIFIED * DO NOT USE * Qualifiers: Pancreatitis type: biliary (3) Obstructive jaundice Assessment/Plan: Due to choledocholithiasis. See below Code(s): K83.8 - OTHER SPECIFIED DISEASES OF BILIARY TRACT (4) Choledocholithiasis with obstruction Assessment/Plan: The biliary pancreatitis and jaundice were due to CBD stones which have been removed. Stent in place to help tamponade the postsphincteotopmy bleed and to keep sphincterotomy open care home and thereby prevent recurrent biliary pancreatitis and/or cholangitis. Will remove in 3 months Code(s): K80.51 - CALCULUS OF BILE DUCT W/O CHOLANGITIS OR CHOLECYST W OBST Qualifiers: Cholangitis presence: without cholangitis Qualified Code(s): K80.51 - Calculus of bile duct without cholangitis or cholecystitis with obstruction
--- NOTE | 2017-01-28 12:04 | PN ---
Progress Note, Physician History of Present Illness: Pt is eating no abd pain. Pt w/o fever, chills, CP, SOB, V. Pt's abd pain is controlled with medication, feels a little better. - Current Medication List Current Medications: Active Medications Acetaminophen (Tylenol -) 650 mg PO Q6H PRN PRN Reason: FEVER Last Admin: 01/28/17 02:38 Dose: 650 mg Allopurinol (Zyloprim -) 300 mg PO DAILY [facility] Last Admin: 01/28/17 10:07 Dose: 300 mg Amlodipine Besylate (Norvasc -) 10 mg PO DAILY [facility] Last Admin: 01/28/17 10:07 Dose: Not Given Piperacillin Sod/Tazobactam (Sod 3.375 gm/ Dextrose) 50 mls @ 100 mls/hr IVPB Q6H-IV [facility] PRN Reason: Protocol Last Admin: 01/28/17 10:06 Dose: 100 mls/hr Pantoprazole Sodium 80 mg/ (Sodium Chloride) 100 mls @ 10 mls/hr IVPB Q10H [facility] PRN Reason: 8 MG/HR Last Admin: 01/28/17 07:51 Dose: 10 mls/hr Lactated Ringer's (Lactated Ringers Solution) 1,000 ml in 1,000 mls @ 125 mls/ hr IV ASDIR [facility] Last Admin: 01/28/17 07:51 Dose: 125 mls/hr Insulin Aspart (Novolog Vial Sliding Scale -) 1 vial SQ ACHS [facility]ESH PRN Reason: Protocol Last Admin: 01/28/17 06:16 Dose: Not Given Losartan Potassium (Cozaar -) 50 mg PO DAILY [facility] Last Admin: 01/28/17 10:07 Dose: Not Given Ondansetron HCl (Zofran Injection) 4 mg IVPUSH Q6H PRN PRN Reason: NAUSEA AND/OR VOMITING - Objective Vital Signs: Vital Signs Temperature 98.3 F 01/28/17 11:05 Pulse Rate 77 01/28/17 11:05 Respiratory Rate 18 01/28/17 11:05 Blood Pressure 119/66 01/28/17 11:05 O2 Sat by Pulse Oximetry (%) 98 01/28/17 09:00 Constitutional: Yes: No Distress, Calm Cardiovascular: Yes: Regular Rate and Rhythm, S1, S2 Respiratory: Yes: Regular, Other (coarse BS at bases) Gastrointestinal: Yes: Normal Bowel Sounds, Soft, Abdomen, Obese. No: Tenderness Edema: No Neurological: Yes: Alert, Oriented Labs: CBC, BMP 01/28/17 06:00 01/28/17 06:00 INR, PTT INR 1.18 (0.82-1.09) H 01/28/17 06:00 Problem List - Problems (1) History of pancreatitis Code(s): Z87.19 - PERSONAL HISTORY OF OTHER DISEASES OF THE DIGESTIVE SYSTEM (2) Acute pancreatitis Code(s): K85.9 - ACUTE PANCREATITIS, UNSPECIFIED * DO NOT USE * Qualifiers: Pancreatitis type: biliary Acute pancreatitis complication: unspecified Qualified Code(s): K85.10 - Biliary acute pancreatitis without necrosis or infection (3) Lymphoma Code(s): C85.90 - NON-HODGKIN LYMPHOMA, UNSPECIFIED, UNSPECIFIED SITE (4) Diabetes mellitus Code(s): E11.9 - TYPE 2 DIABETES MELLITUS WITHOUT COMPLICATIONS (5) Leukocytosis Code(s): D72.829 - ELEVATED WHITE BLOOD CELL COUNT, UNSPECIFIED (6) GIB (gastrointestinal bleeding) Code(s): K92.2 - GASTROINTESTINAL HEMORRHAGE, UNSPECIFIED Assessment/Plan Pt is tolerating PO well. To DC IVF. Abtx per ID Pain control GI consult appreciated ID consult appreciated MRCP report was reviewd. Replete K+ S/p repeated ERCP, no active bleed; to monitor AM labs.
[2017-01-28 12:57] LABS: MCH 28.4 pg (25.7-33.7); MCHC 32.9 g/dl (32.0-35.9); MEAN CELL VOLUME 86.4 fl (80-96); MEAN PLT VOLUME 8.9 fl (7.5-11.1); PLATELET COUNT 234 K/MM3 (134-434); RDW 14.9 % (11.9-15.9); WHITE BLOOD COUNT 16.4 K/mm3 (4.0-10.0)
[2017-01-28 12:59] LABS: MAGNESIUM 2.3 mg/dL (1.8-2.4)
[2017-01-28] MEDS ORDERED: POTASSIUM CHLORIDE TABS 20 MEQ TABLET.ER (FP) PO ONE (13:00)
--- NOTE | 2017-01-28 13:11 | PN ---
Progress Note, Physician History of Present Illness: Taken back to endoscopy suite for possible bleeding at sphincterotomy site. No bleeding noted Transfused PRBCs Awake, alert Seated in bed Tolerating solid food No c/o abdominal pain No nausea/vomiting Low grade temp WBC elevated 16k - Current Medication List Current Medications: Active Medications Acetaminophen (Tylenol -) 650 mg PO Q6H PRN PRN Reason: FEVER Last Admin: 01/28/17 02:38 Dose: 650 mg Allopurinol (Zyloprim -) 300 mg PO DAILY [facility] Last Admin: 01/28/17 10:07 Dose: 300 mg Amlodipine Besylate (Norvasc -) 10 mg PO DAILY [facility] Last Admin: 01/28/17 10:07 Dose: Not Given Piperacillin Sod/Tazobactam (Sod 3.375 gm/ Dextrose) 50 mls @ 100 mls/hr IVPB Q6H-IV [facility] PRN Reason: Protocol Last Admin: 01/28/17 10:06 Dose: 100 mls/hr Pantoprazole Sodium 80 mg/ (Sodium Chloride) 100 mls @ 10 mls/hr IVPB Q10H [facility] PRN Reason: 8 MG/HR Last Admin: 01/28/17 07:51 Dose: 10 mls/hr Insulin Aspart (Novolog Vial Sliding Scale -) 1 vial SQ ACHS [facility] PRN Reason: Protocol Last Admin: 01/28/17 12:12 Dose: Not Given Losartan Potassium (Cozaar -) 50 mg PO DAILY [facility] Last Admin: 01/28/17 10:07 Dose: Not Given Ondansetron HCl (Zofran Injection) 4 mg IVPUSH Q6H PRN PRN Reason: NAUSEA AND/OR VOMITING - Objective Vital Signs: Vital Signs Temperature 98.3 F 01/28/17 11:05 Pulse Rate 77 01/28/17 11:05 Respiratory Rate 18 01/28/17 11:05 Blood Pressure 119/66 01/28/17 11:05 O2 Sat by Pulse Oximetry (%) 98 01/28/17 09:00 Constitutional: Yes: No Distress, Obese Eyes: Yes: Conjunctiva Clear Cardiovascular: Yes: Regular Rate and Rhythm, S1, S2 Respiratory: Yes: CTA Bilaterally Gastrointestinal: Yes: Normal Bowel Sounds, Soft. No: Tenderness Labs: CBC, BMP 01/28/17 12:53 01/28/17 06:00 INR, PTT INR 1.18 (0.82-1.09) H 01/28/17 06:00 Assessment/Plan S/P ERCP, stone extraction Biliary sepsis pancreatitis Lymphoma Continue zosyn
[2017-01-28] MEDS ORDERED: PT OWN MED DRAWER 7, Y5N ONE ×2 (14:20→17:04)
[2017-01-29] MEDS: PIPERACILLIN/TAZOB 3.375 GM 3.375 GM in DEXTROSE 5%-WATER - 50 ML IVPB SCH ×4 (02:22→21:44)
[2017-01-29] MEDS: PANTOPRAZOLE SODIUM 80 MG in SODIUM CHLORIDE 100 ML IVPB SCH ×3 (02:23→22:32)
[2017-01-29] MEDS: INSULIN SLIDING SCALE (NOVOLOG) 1 VIAL SQ SCH ×4 (06:11→21:56)
[2017-01-29] MEDS: ACETAMINOPHEN 325 MG TABLET (FP) PO PRN (06:13)
[2017-01-29 08:04] LABS: MCH 28.8 pg (25.7-33.7); MCHC 33.2 g/dl (32.0-35.9); MEAN CELL VOLUME 86.6 fl (80-96); MEAN PLT VOLUME 8.8 fl (7.5-11.1); PLATELET COUNT 240 K/MM3 (134-434); RDW 14.7 % (11.9-15.9); WHITE BLOOD COUNT 17.1 K/mm3 (4.0-10.0)
[2017-01-29 08:23] LABS: ALBUMIN 2.4 g/dl (3.4-5.0); ANION GAP 9 (8-16); CO2 26 mmol/L (21-32); GLUCOSE,RANDOM 157 mg/dL (74-106)
[2017-01-29 08:26] LABS: ALK PHOS 83 U/L (45-117); BILIRUBIN,TOTAL 0.7 mg/dL (0.2-1.0); CREATININE 0.8 mg/dL (0.7-1.3); SGOT/AST 42 U/L (15-37); SGPT/ALT 82 U/L (12-78); TOT PROT 4.9 g/dl (6.4-8.2)
[2017-01-29] MEDS ORDERED: PT OWN MED DRAWER 7, Y5N ONE ×4 (09:46→21:53)
[2017-01-29] MEDS: amLODIPine BESYLATE 10 MG TABLET (FP) PO SCH (09:48)
[2017-01-29] MEDS: LOSARTAN POTASSIUM 50 MG TABLET (FP) PO SCH (09:48)
[2017-01-29] MEDS: ALLOPURINOL 300 MG TABLET (FP) PO SCH (09:56)
--- NOTE | 2017-01-29 13:17 | PN ---
Progress Note, Physician History of Present Illness: Pt felt feverish this AM. Pt is eating no abd pain. Pt w/o CP, SOB, Dizziness. Pt's abd pain is controlled with medication, feels a little better. - Current Medication List Current Medications: Active Medications Acetaminophen (Tylenol -) 650 mg PO Q6H PRN PRN Reason: FEVER Last Admin: 01/29/17 06:13 Dose: 650 mg Allopurinol (Zyloprim -) 300 mg PO DAILY [facility] Last Admin: 01/29/17 09:56 Dose: 300 mg Amlodipine Besylate (Norvasc -) 10 mg PO DAILY [facility] Last Admin: 01/29/17 09:48 Dose: 10 mg Piperacillin Sod/Tazobactam (Sod 3.375 gm/ Dextrose) 50 mls @ 100 mls/hr IVPB Q6H-IV [facility] PRN Reason: Protocol Last Admin: 01/29/17 09:49 Dose: 100 mls/hr Pantoprazole Sodium 80 mg/ (Sodium Chloride) 100 mls @ 10 mls/hr IVPB Q10H [facility] PRN Reason: 8 MG/HR Last Admin: 01/29/17 11:54 Dose: 10 mls/hr Insulin Aspart (Novolog Vial Sliding Scale -) 1 vial SQ ACHS [facility] PRN Reason: Protocol Last Admin: 01/29/17 11:58 Dose: 4 units Losartan Potassium (Cozaar -) 50 mg PO DAILY [facility] Last Admin: 01/29/17 09:48 Dose: 50 mg Ondansetron HCl (Zofran Injection) 4 mg IVPUSH Q6H PRN PRN Reason: NAUSEA AND/OR VOMITING - Objective Vital Signs: Vital Signs Temperature 98.7 F 01/29/17 08:35 Pulse Rate 82 01/29/17 08:35 Respiratory Rate 20 01/29/17 08:35 Blood Pressure 150/87 01/29/17 08:35 O2 Sat by Pulse Oximetry (%) 98 01/28/17 21:00 Constitutional: Yes: No Distress, Calm Cardiovascular: Yes: Regular Rate and Rhythm, S1, S2 Respiratory: Yes: Regular, CTA Bilaterally, Rales Gastrointestinal: Yes: Normal Bowel Sounds, Soft. No: Tenderness Edema: No Neurological: Yes: Alert, Oriented Labs: CBC, BMP 01/29/17 06:35 01/29/17 06:35 INR, PTT INR 1.18 (0.82-1.09) H 01/28/17 06:00 Problem List - Problems (1) History of pancreatitis Code(s): Z87.19 - PERSONAL HISTORY OF OTHER DISEASES OF THE DIGESTIVE SYSTEM (2) Acute pancreatitis Code(s): K85.9 - ACUTE PANCREATITIS, UNSPECIFIED * DO NOT USE * Qualifiers: Pancreatitis type: biliary Acute pancreatitis complication: unspecified Qualified Code(s): K85.10 - Biliary acute pancreatitis without necrosis or infection (3) Lymphoma Code(s): C85.90 - NON-HODGKIN LYMPHOMA, UNSPECIFIED, UNSPECIFIED SITE (4) Diabetes mellitus Code(s): E11.9 - TYPE 2 DIABETES MELLITUS WITHOUT COMPLICATIONS (5) Leukocytosis Code(s): D72.829 - ELEVATED WHITE BLOOD CELL COUNT, UNSPECIFIED (6) GIB (gastrointestinal bleeding) Code(s): K92.2 - GASTROINTESTINAL HEMORRHAGE, UNSPECIFIED Assessment/Plan Pt is tolerating PO well. To DC IVF. Abtx per ID Pain control GI consult appreciated ID consult appreciated MRCP report was reviewd. H/H is trending down. WBC still elevated. Continue curent RX. To flu with GI, ID.
--- NOTE | 2017-01-29 17:14 | PN ---
Progress Note (short form) - Note Progress Note: no pain passed small amt blood earlier today Vital Signs Period Temp Pulse Resp BP Sys/Sanchez Pulse Ox Last 24 Hr 98.7 F-100.3 F 72-82 18-20 121-152/62-87 98 cor-rrr lungs clear abd soft,nt ext no edema CBC, BMP 01/29/17 06:35 01/29/17 06:35 Microbiology 01/24/17 10:50 Blood - Peripheral Venous Blood Culture - Final NO GROWTH AFTER 5 DAYS INCUBATION 01/24/17 10:50 Blood - Peripheral Venous Blood Culture - Final NO GROWTH AFTER 5 DAYS INCUBATION a/p s/p ERCP- continue zosyn, f/u labs in am leukocytosis secondary to bleed- consider d/c zosyn in am willl talk to GI pancreatitis-improved lymphoma DM Problem List - Problems (1) Biliary sepsis Code(s): K83.0 - CHOLANGITIS (2) Acute pancreatitis Code(s): K85.9 - ACUTE PANCREATITIS, UNSPECIFIED * DO NOT USE * Qualifiers: Pancreatitis type: biliary Acute pancreatitis complication: unspecified Qualified Code(s): K85.10 - Biliary acute pancreatitis without necrosis or infection (3) Lymphoma Code(s): C85.90 - NON-HODGKIN LYMPHOMA, UNSPECIFIED, UNSPECIFIED SITE (4) Diabetes mellitus Code(s): E11.9 - TYPE 2 DIABETES MELLITUS WITHOUT COMPLICATIONS
[2017-01-29] MEDS ORDERED: INSULIN (NOVOLOG) ASPART 100 UNITS/ML 10ML VIAL ONE (17:46)
[2017-01-30] MEDS: PIPERACILLIN/TAZOB 3.375 GM 3.375 GM in DEXTROSE 5%-WATER - 50 ML IVPB SCH ×2 (03:00→09:46)
[2017-01-30] MEDS: INSULIN SLIDING SCALE (NOVOLOG) 1 VIAL SQ SCH ×4 (06:55→21:16)
[2017-01-30 08:32] LABS: MCH 28.7 pg (25.7-33.7); MCHC 32.8 g/dl (32.0-35.9); MEAN CELL VOLUME 87.4 fl (80-96); MEAN PLT VOLUME 8.5 fl (7.5-11.1); PLATELET COUNT 307 K/MM3 (134-434); RDW 15.1 % (11.9-15.9); WHITE BLOOD COUNT 16.1 K/mm3 (4.0-10.0)
[2017-01-30 09:13] LABS: ALBUMIN 2.6 g/dl (3.4-5.0); ANION GAP 12 (8-16); CALCIUM 8.4 mg/dL (8.5-10.1); CO2 24 mmol/L (21-32); GLUCOSE,RANDOM 151 mg/dL (74-106)
[2017-01-30 09:19] LABS: ALK PHOS 88 U/L (45-117); BILIRUBIN,TOTAL 0.7 mg/dL (0.2-1.0); CREATININE 0.7 mg/dL (0.7-1.3); SGOT/AST 49 U/L (15-37); SGPT/ALT 85 U/L (12-78); TOT PROT 5.8 g/dl (6.4-8.2)
[2017-01-30] MEDS: ALLOPURINOL 300 MG TABLET (FP) PO SCH (09:46)
[2017-01-30] MEDS: amLODIPine BESYLATE 10 MG TABLET (FP) PO SCH (09:51)
[2017-01-30] MEDS: PANTOPRAZOLE SODIUM 80 MG in SODIUM CHLORIDE 100 ML IVPB SCH ×3 (09:51→18:31)
[2017-01-30] MEDS: LOSARTAN POTASSIUM 50 MG TABLET (FP) PO SCH (09:51)
--- NOTE | 2017-01-30 09:51 | PN ---
Progress Note, Physician History of Present Illness: Pt w/o fever,chills; he feelsweak this AM. Pt w/o blood in stool. Pt is eating w/o abd painN, V. Pt w/o CP, SOB, Dizziness. - Current Medication List Current Medications: Active Medications Acetaminophen (Tylenol -) 650 mg PO Q6H PRN PRN Reason: FEVER Last Admin: 01/29/17 06:13 Dose: 650 mg Allopurinol (Zyloprim -) 300 mg PO DAILY [facility] Last Admin: 01/29/17 09:56 Dose: 300 mg Amlodipine Besylate (Norvasc -) 10 mg PO DAILY [facility] Last Admin: 01/29/17 09:48 Dose: 10 mg Piperacillin Sod/Tazobactam (Sod 3.375 gm/ Dextrose) 50 mls @ 100 mls/hr IVPB Q6H-IV [facility] PRN Reason: Protocol Last Admin: 01/30/17 03:00 Dose: 100 mls/hr Pantoprazole Sodium 80 mg/ (Sodium Chloride) 100 mls @ 10 mls/hr IVPB Q10H [facility] PRN Reason: 8 MG/HR Last Admin: 01/29/17 22:32 Dose: 10 mls/hr Insulin Aspart (Novolog Vial Sliding Scale -) 1 vial SQ ACHS [facility] PRN Reason: Protocol Last Admin: 01/30/17 06:55 Dose: 2 units Losartan Potassium (Cozaar -) 50 mg PO DAILY [facility] Last Admin: 01/29/17 09:48 Dose: 50 mg Ondansetron HCl (Zofran Injection) 4 mg IVPUSH Q6H PRN PRN Reason: NAUSEA AND/OR VOMITING - Objective Vital Signs: Vital Signs Temperature 98.6 F 01/30/17 05:50 Pulse Rate 80 01/30/17 05:50 Respiratory Rate 20 01/30/17 05:50 Blood Pressure 147/81 01/30/17 05:50 O2 Sat by Pulse Oximetry (%) 98 01/29/17 21:00 Eyes: Yes: Conjunctiva Clear. No: Sclera Icterus Cardiovascular: Yes: Regular Rate and Rhythm, S1, S2 Respiratory: Yes: Regular, CTA Bilaterally. No: Rales Gastrointestinal: Yes: Normal Bowel Sounds, Soft Edema: No Neurological: Yes: Alert, Oriented Labs: CBC, BMP 01/30/17 07:00 01/30/17 07:00 INR, PTT INR 1.18 (0.82-1.09) H 01/28/17 06:00 Problem List - Problems (1) History of pancreatitis Code(s): Z87.19 - PERSONAL HISTORY OF OTHER DISEASES OF THE DIGESTIVE SYSTEM (2) Acute pancreatitis Code(s): K85.9 - ACUTE PANCREATITIS, UNSPECIFIED * DO NOT USE * Qualifiers: Pancreatitis type: biliary Acute pancreatitis complication: unspecified Qualified Code(s): K85.10 - Biliary acute pancreatitis without necrosis or infection (3) Lymphoma Code(s): C85.90 - NON-HODGKIN LYMPHOMA, UNSPECIFIED, UNSPECIFIED SITE (4) Diabetes mellitus Code(s): E11.9 - TYPE 2 DIABETES MELLITUS WITHOUT COMPLICATIONS (5) Leukocytosis Code(s): D72.829 - ELEVATED WHITE BLOOD CELL COUNT, UNSPECIFIED (6) GIB (gastrointestinal bleeding) Code(s): K92.2 - GASTROINTESTINAL HEMORRHAGE, UNSPECIFIED Assessment/Plan Pt is tolerating PO well. To DC IVF. Abtx per ID Pain control GI consult appreciated ID consult appreciated MRCP report was reviewd. H/H is slightly up. WBC still elevated; unclear source. Continue curent RX. To flu with GI, ID. Case was d/w pt's nurse.
--- NOTE | 2017-01-30 10:22 | PN ---
Progress Note (short form) - Note Progress Note: no pain low grade temp overnight not passing blood no abdominal pain Vital Signs Period Temp Pulse Resp BP Sys/Sanchez Pulse Ox Last 24 Hr 98.4 F-99.7 F 76-80 16-20 136-147/67-81 98 cor-rrr lungs clear abd soft,nt ext no edema CBC, BMP 01/30/17 07:00 01/30/17 07:00 a/p s/p ERCP- continue zosyn, f/u labs in am ?leukocytosis secondary to bleed- consider d/c zosyn -now day #7- leukocytosis persists ?need for abdominal imaging- will d/w GI- have a call in to the GI service pancreatitis-improved lymphoma DM Problem List - Problems (1) Biliary sepsis Code(s): K83.0 - CHOLANGITIS (2) Acute pancreatitis Code(s): K85.9 - ACUTE PANCREATITIS, UNSPECIFIED * DO NOT USE * Qualifiers: Pancreatitis type: biliary Acute pancreatitis complication: unspecified Qualified Code(s): K85.10 - Biliary acute pancreatitis without necrosis or infection (3) Lymphoma Code(s): C85.90 - NON-HODGKIN LYMPHOMA, UNSPECIFIED, UNSPECIFIED SITE (4) Diabetes mellitus Code(s): E11.9 - TYPE 2 DIABETES MELLITUS WITHOUT COMPLICATIONS
[2017-01-30] MEDS ORDERED: INSULIN (NOVOLOG) ASPART 100 UNITS/ML 10ML VIAL ONE (21:01)
--- NOTE | 2017-01-30 21:05 | PN ---
GI Progress Note Subjective: HaGI NOte: No futher bleeding. Hb stable. LFTs normalizing. No fever since . Discussed case with Dr Newby earlier today and support plan to observe off antibiotics. With indwelling stent bile duct is not likely to be the source of elevated WBC - Objective Vital Signs: Vital Signs Temperature 98.6 F 01/30/17 16:40 Pulse Rate 71 01/30/17 16:40 Respiratory Rate 18 01/30/17 16:40 Blood Pressure 129/67 01/30/17 16:40 O2 Sat by Pulse Oximetry (%) 98 01/30/17 09:00 Constitutional: No Distress ...Auscultate: Yes: Normoactive Bowel Sounds ...Palpate: Yes: Soft, Other Labs: CBC, BMP 01/30/17 07:00 01/30/17 07:00 INR, PTT INR 1.18 (0.82-1.09) H 01/28/17 06:00 Laboratory Tests 01/23/17 01/24/17 01/25/17 13:45 06:35 07:30 WBC Hgb Hct Total Bilirubin 1.8 H D 2.9 H D 4.8 H D AST ALT Alkaline Phosphatase 01/26/17 01/27/17 01/28/17 06:00 06:00 06:00 WBC Hgb Hct Total Bilirubin 2.7 H D 1.4 H D 1.0 D AST ALT Alkaline Phosphatase 01/30/17 01/30/17 07:00 07:00 WBC 16.1 H Hgb 8.9 L Hct 27.2 L Total Bilirubin 0.7 AST 49 H ALT 85 H Alkaline Phosphatase 88 Problem List - Problems (1) Bleeding from sphincterotomy site Assessment/Plan: Bleeding from the sphincterotomy site has resolved. I reminded Estevan that he will need a repeat ERCP in 3 months to remove his stent. Code(s): K91.841 - POSTPROC HEMOR OF A DGSTV SYS ORG FOLLOWING OTHER PROCEDURE (2) Pancreatitis Assessment/Plan: Biliary pancreatitis resolved. Did not recur post ERCP. Sphincterotomy will hopefully prevent recurrences Code(s): K85.9 - ACUTE PANCREATITIS, UNSPECIFIED * DO NOT USE * Qualifiers: Pancreatitis type: biliary (3) Obstructive jaundice Code(s): K83.8 - OTHER SPECIFIED DISEASES OF BILIARY TRACT (4) Choledocholithiasis with obstruction Code(s): K80.51 - CALCULUS OF BILE DUCT W/O CHOLANGITIS OR CHOLECYST W OBST Qualifiers: Cholangitis presence: without cholangitis Qualified Code(s): K80.51 - Calculus of bile duct without cholangitis or cholecystitis with obstruction
[2017-01-31] MEDS: PANTOPRAZOLE SODIUM 80 MG in SODIUM CHLORIDE 100 ML IVPB SCH (04:26)
[2017-01-31] MEDS: ACETAMINOPHEN 325 MG TABLET (FP) PO PRN ×2 (05:45→10:25)
[2017-01-31] MEDS: INSULIN SLIDING SCALE (NOVOLOG) 1 VIAL SQ SCH ×2 (06:51→11:54)
[2017-01-31 08:13] LABS: BASOPHIL 0.5 % (0-2.0); EOSINOPHIL 2.7 % (0-4.5); MCH 28.8 pg (25.7-33.7); MEAN CELL VOLUME 87.3 fl (80-96); MEAN PLT VOLUME 8.6 fl (7.5-11.1); NEUTROPHILS 77.7 % (42.8-82.8); PLATELET COUNT 359 K/MM3 (134-434); RDW 14.8 % (11.9-15.9); WHITE BLOOD COUNT 13.8 K/mm3 (4.0-10.0)
[2017-01-31 08:55] LABS: ALBUMIN 2.7 g/dl (3.4-5.0); ANION GAP 10 (8-16); BILIRUBIN,TOTAL 0.9 mg/dL (0.2-1.0); CALCIUM 8.7 mg/dL (8.5-10.1); CO2 25 mmol/L (21-32); CREATININE 0.7 mg/dL (0.7-1.3); GLUCOSE,RANDOM 172 mg/dL (74-106); SGOT/AST 58 U/L (15-37); SGPT/ALT 89 U/L (12-78); TOT PROT 5.8 g/dl (6.4-8.2)
[2017-01-31 08:56] LABS: ALK PHOS 88 U/L (45-117)
[2017-01-31] MEDS: ALLOPURINOL 300 MG TABLET (FP) PO SCH (10:09)
[2017-01-31] MEDS: LOSARTAN POTASSIUM 50 MG TABLET (FP) PO SCH (10:18)
[2017-01-31] MEDS: amLODIPine BESYLATE 10 MG TABLET (FP) PO SCH (10:18)
--- NOTE | 2017-01-31 12:56 | PN ---
Progress Note (short form) - Note Progress Note: no fevers no abd pain tolerating regular diet Vital Signs Period Temp Pulse Resp BP Sys/Sanchez Pulse Ox Last 24 Hr 98.0 F-98.6 F 71-74 16-20 106-141/57-71 98 cor-rrr lungs clear abd soft,nt ext no edema CBC, BMP 01/31/17 06:50 01/31/17 06:50 a/p s/p ERCP- pancreatitis-improved leukocytosis improved, zosyn d/kimberly yesterday further management per PMD please call back if needed lymphoma DM Problem List - Problems (1) Biliary sepsis Code(s): K83.0 - CHOLANGITIS (2) Acute pancreatitis Code(s): K85.9 - ACUTE PANCREATITIS, UNSPECIFIED * DO NOT USE * Qualifiers: Pancreatitis type: biliary Acute pancreatitis complication: unspecified Qualified Code(s): K85.10 - Biliary acute pancreatitis without necrosis or infection (3) Lymphoma Code(s): C85.90 - NON-HODGKIN LYMPHOMA, UNSPECIFIED, UNSPECIFIED SITE (4) Diabetes mellitus Code(s): E11.9 - TYPE 2 DIABETES MELLITUS WITHOUT COMPLICATIONS
--- NOTE | 2017-01-31 13:03 | DS ---
Physical Examination Vital Signs: Vital Signs Temperature 98.6 F 01/31/17 06:00 Pulse Rate 74 01/31/17 06:00 Respiratory Rate 20 01/31/17 06:00 Blood Pressure 141/57 01/31/17 06:00 O2 Sat by Pulse Oximetry (%) 98 01/30/17 21:00 Findings/Remarks: Pt w/o Fever, chills, abd pain, N, V; pt is tolerating food well Constitutional: Yes: No Distress, Calm Cardiovascular: Yes: Regular Rate and Rhythm, S1, S2 Respiratory: Yes: Regular, CTA Bilaterally. No: Rales Gastrointestinal: Yes: Normal Bowel Sounds, Soft. No: Tenderness Edema: No Neurological: Yes: Alert, Oriented Labs: CBC, BMP 01/31/17 06:50 01/31/17 06:50 Discharge Summary Reason For Visit: PANCREATITIS Current Active Problems Abnormal LFTs (Acute) Acute pancreatitis (Acute) Biliary sepsis (Acute) Bleeding from sphincterotomy site (Acute) Choledocholithiasis with obstruction (Acute) GIB (gastrointestinal bleeding) (Acute) History of pancreatitis (Acute) Lymphoma (Acute) Obstructive jaundice (Acute) Hospital Course: Pt with known Acute Gallstone Pacreatitis and s/p cholecystectomy this year, came to ER with epigastric pain. Pt was noticed to have Acute Pancreatitis, was kept NPO, started on IV abtx and IVF. Pt was seen by GI (Dr. Herrera), ID (Dr. Moyer). Pt underwent MRCP then ERCP; post ERCP H/H dropped and underwent second ERCP- no active bleed. Pt started to tolerate PO well. Pt with elevated WBC, was observed off abtx, WBC is trending down. To be monitor as outpatient. Pt needs to repeat ERCP in 3 months- pt is aware. Condition: Stable - Instructions Diet, Activity, Other Instructions: Resume home diet. Referrals: Alden Izaguirre MD [Primary Care Provider] - (within a week) Yves Herrera MD [Staff Physician] - (in 3 months for ERCP) - Home Medications Comprehensive Discharge Medication List: Ambulatory Orders this list might NOT be accurate: Amlodipine Besylate [Norvasc -] 7.5 mg PO DAILY 01/23/17 Celecoxib [Celebrex] 100 mg PO BID 01/23/17 Cholecalciferol (Vitamin D3) [Vitamin D3] 2,000 unit PO DAILY 01/23/17 Insulin (Levemir) [Levemir Flexpen -] 10 units SQ DAILY 01/23/17 Insulin (Levemir) [Levemir Flexpen -] 20 units SQ HS 01/23/17 Insulin Aspart [Novolog] 100 unit SQ TID 01/23/17 Losartan Potassium 50 mg PO DAILY 01/23/17 Metformin HCl 500 mg PO DAILY 01/23/17
[2017-01-31 14:41] VITALS: BP 123/60; PULSE 73; TEMP 98.3
== END 2017-01-31 16:13 | disposition home or self-care (01) | DRG 439 ==
LOC: JER 12:21 → SUPCPDRO 12:21 → JERBED 15:01 → J8W 18:59
PROVIDERS: ADMIT Specialist; ATTEND Specialist
PROC: 0F798DZ Dilation of Common Bile Duct with Intraluminal Device, Via Natural or Artificial Opening Endoscopic (ICD-10-PCS; 2017-01-26)
PROC: 0FC98ZZ Extirpation of Matter from Common Bile Duct, Via Natural or Artificial Opening Endoscopic (ICD-10-PCS; principal; 2017-01-26 12:30)
PROC: 0DJ08ZZ Inspection of Upper Intestinal Tract, Via Natural or Artificial Opening Endoscopic (ICD-10-PCS; 2017-01-27)
PROC: 30233N1 Transfusion of Nonautologous Red Blood Cells into Peripheral Vein, Percutaneous Approach (ICD-10-PCS; 2017-01-27)
DX: K85.90 Acute pancreatitis without necrosis or infection, unspecified (principal); C85.90 Non-Hodgkin lymphoma, unspecified, unspecified site; K91.840 Postprocedural hemorrhage of a digestive system organ or structure following a digestive system procedure; K80.51 Calculus of bile duct without cholangitis or cholecystitis with obstruction; K83.0 Cholangitis; E11.9 Type 2 diabetes mellitus without complications; I10 Essential (primary) hypertension; Z79.4 Long term (current) use of insulin; E66.9 Obesity, unspecified; Z87.891 Personal history of nicotine dependence; D72.829 Elevated white blood cell count, unspecified; K44.9 Diaphragmatic hernia without obstruction or gangrene; Y83.8 Other surgical procedures as the cause of abnormal reaction of the patient, or of later complication, without mention of misadventure at the time of the procedure; Z68.36 Body mass index [BMI] 36.0-36.9, adult
CPT/HCPCS: 36415; 36430; 71020-TC; 74181-TC; 74330-TC; 76705-TC; 80048; 80053; 80076; 82150; 82248; 82728; 83540; 83550; 83690; 83735; 84478; 84484; 85025; 85027; 85044; 85610; 85730; 86140; 86850; 86900; 86901; 86922; 87040; 90688; 93005; 93010; 93306-TC; 94760; 97116-GP; 97161-GP; 99282-25; G0008; P9058

== ENCOUNTER 2017-02-15 07:26 | Day surgery (SDC) | payer BC ==
[2017-02-15] MEDS ORDERED: SODIUM CHLORIDE 250 ML IV ONE (08:00)
[2017-02-15] MEDS ORDERED: ACETAMINOPHEN 325 MG TABLET (FP) PO ONE (08:30)
[2017-02-15] MEDS ORDERED: DEXAMETHASONE INJECTION 20 MG, DIPHENHYDRAMINE 25 MG in SODIUM CHLORIDE 100 ML IVPB ONE (08:30)
[2017-02-15 08:49] LABS: BASOPHIL 0.9 % (0-2.0); EOSINOPHIL 1.9 % (0-4.5); MCHC 32.7 g/dl (32.0-35.9); MEAN CELL VOLUME 85.8 fl (80-96); MEAN PLT VOLUME 8.2 fl (7.5-11.1); NEUTROPHILS 70.9 % (42.8-82.8); PLATELET COUNT 321 K/MM3 (134-434); RDW 15.3 % (11.9-15.9); WHITE BLOOD COUNT 9.2 K/mm3 (4.0-10.0)
[2017-02-15] MEDS ORDERED: RITUXIMAB IVPB ONE (09:00)
[2017-02-15] MEDS ORDERED: SODIUM CHLORIDE IVPB ONE (09:00)
[2017-02-15 09:08] LABS: ALBUMIN 3.6 g/dl (3.4-5.0); ANION GAP 6 (8-16); BILIRUBIN,DIRECT 0.2 mg/dL (0.0-0.2); CO2 25 mmol/L (21-32); GLUCOSE,RANDOM 181 mg/dL (74-106); MAGNESIUM 2.3 mg/dL (1.8-2.4); SGOT/AST 22 U/L (15-37); SGPT/ALT 29 U/L (12-78)
[2017-02-15 09:09] LABS: ALK PHOS 99 U/L (45-117); BILIRUBIN,TOTAL 0.6 mg/dL (0.2-1.0); TOT PROT 6.9 g/dl (6.4-8.2)
[2017-02-15] MEDS ORDERED: ACETAMINOPHEN 325 MG TABLET (FP) ONE (10:58)
[2017-02-15 17:13] VITALS: TEMP 98
[2017-02-19 08:11] VITALS: BP 150/76; PULSE 82
== END 2017-02-15 16:45 | disposition home or self-care (01) ==
LOC: JONCCHEMO 07:26 → J7W 09:23 → JONCCHEMO 16:45
PROVIDERS: ATTEND Internal Medicine Hematology & Oncology
DX: Z51.11 Encounter for antineoplastic chemotherapy (principal); C83.08 Small cell B-cell lymphoma, lymph nodes of multiple sites
CPT/HCPCS: 36415; 80053; 80076; 83735; 85025; 86705; 87350; 96361; 96367; 96375; 96413; 96415; J9310

== ENCOUNTER 2017-04-12 07:32 | Day surgery (SDC) | payer BC ==
[2017-04-12] MEDS ORDERED: SODIUM CHLORIDE 250 ML IV ONE (08:00)
[2017-04-12] MEDS ORDERED: ACETAMINOPHEN 325 MG TABLET (FP) PO ONE (08:30)
[2017-04-12] MEDS ORDERED: DEXAMETHASONE INJECTION 20 MG, DIPHENHYDRAMINE 25 MG in SODIUM CHLORIDE 100 ML IVPB ONE (08:30)
[2017-04-12 08:36] VITALS: TEMP 98.1
[2017-04-12] MEDS ORDERED: SODIUM CHLORIDE IVPB ONE (09:00)
[2017-04-12] MEDS ORDERED: RITUXIMAB IVPB ONE (09:00)
[2017-04-12 09:27] LABS: BASO % 0.8 % (0-2.0); EOS % 5.3 % (0-4.5); HEMATOCRIT 42.3 % (35.4-49); HEMOGLOBIN 13.4 GM/dL (11.7-16.9); LYMPH % 19.4 % (8-40); MCH 24.2 pg (25.7-33.7); MCHC 31.8 g/dl (32.0-35.9); MEAN CELL VOLUME 76.1 fl (80-96); MEAN PLT VOLUME 8.6 fl (7.5-11.1); MONO % 10.1 % (3.8-10.2); NEUT % 64.4 % (42.8-82.8); PLATELET COUNT 270 K/MM3 (134-434); RBC 5.56 M/mm3 (4.00-5.60)
[2017-04-12 10:04] LABS: ALBUMIN 3.8 g/dl (3.4-5.0); ANION GAP 12 (8-16); BILIRUBIN,DIRECT < 0.2 mg/dL (0.0-0.2); BLOOD UREA NITROGEN 24 mg/dL (7-18); CALCIUM 9.7 mg/dL (8.5-10.1); CHLORIDE 107 mmol/L (98-107); CO2 22 mmol/L (21-32); CREATININE 1.1 mg/dL (0.7-1.3); GLUCOSE,RANDOM 173 mg/dL (74-106); MAGNESIUM 1.9 mg/dL (1.8-2.4); POTASSIUM 3.7 mmol/L (3.5-5.1); SGOT/AST 28 U/L (15-37); SGPT/ALT 35 U/L (12-78); SODIUM 141 mmol/L (136-145); URIC ACID 4.5 mg/dL (2.6-7.2)
[2017-04-12 10:06] LABS: ALK PHOS 101 U/L (45-117); BILIRUBIN,TOTAL 0.3 mg/dL (0.2-1.0)
[2017-04-12] MEDS ORDERED: ACETAMINOPHEN 325 MG TABLET (FP) ONE (14:49)
[2017-04-12 17:11] VITALS: BP 146/70; PULSE 83
== END 2017-04-12 15:15 | disposition home or self-care (01) ==
LOC: JONCCHEMO 07:32 → J7W 10:01 → JONCCHEMO 15:15
PROVIDERS: ATTEND Internal Medicine Hematology & Oncology
DX: Z51.11 Encounter for antineoplastic chemotherapy (principal); C83.08 Small cell B-cell lymphoma, lymph nodes of multiple sites; E11.9 Type 2 diabetes mellitus without complications; I10 Essential (primary) hypertension; E78.00 Pure hypercholesterolemia, unspecified; M19.91 Primary osteoarthritis, unspecified site
CPT/HCPCS: 36415; 80053; 80076; 82232; 83735; 84550; 85025; 85651; 96361; 96367; 96375; 96413; 96415; J1100; J9310

== ENCOUNTER 2017-07-06 08:50 | Day surgery (SDC) | payer BC ==
[2017-07-06 09:49] VITALS: TEMP 98.6; BMI 37.0
[2017-07-06] MEDS ORDERED: ceFAZolin SODIUM 1 GM VIAL ONE (10:20)
[2017-07-06] MEDS ORDERED: ceFAZolin 2 GRAM PREMIX BAG IVPB ONE (10:30)
[2017-07-06] MEDS ORDERED: IOHEXOL 300 MG/ML INFUS..BTL IV ONE (10:45)
[2017-07-06 12:40] VITALS: BP 158/83; PULSE 65
--- NOTE | 2017-07-09 16:01 | PATH ---
Surgical Pathology Report Patient Name: PETE MCCARTHY [facility]. Rec. #: [id number] /Age/Gender: 1955 (Age: 62) / M Account: [id number] Location: ASU-ENDOSCOPY Taken: 07/06/2017 Received: 07/06/2017 Reported: 07/09/2017 Physicians: Yves Herrera M.D. Specimen(s) Received OLD STENT (BILARY) Clinical History Common bile duct stones Postoperative diagnosis: Choledocholithiasis Final Diagnosis BILIARY STENT, OLD, REMOVAL: CONSISTENT WITH BILIARY STENT. MACROSCOPIC DIAGNOSIS. Electronically Signed Madalyn Borges M.D. Gross Description Received fresh labeled "old stent biliary," is a 15 cm in length blue, coiled portion of tubing, consistent with a biliary stent. No soft tissue is present. No sections are submitted, gross only. /07/06/2017 saudi/07/06/2017
== END 2017-07-06 12:41 | disposition home or self-care (01) ==
LOC: JASU-ENDO 08:50
PROVIDERS: ATTEND Internal Medicine Gastroenterology
PROC: 0FPB8DZ Removal of Intraluminal Device from Hepatobiliary Duct, Via Natural or Artificial Opening Endoscopic (ICD-10-PCS; 2017-07-06)
PROC: 0FC98ZZ Extirpation of Matter from Common Bile Duct, Via Natural or Artificial Opening Endoscopic (ICD-10-PCS; principal; 2017-07-06 10:00)
DX: K80.50 Calculus of bile duct without cholangitis or cholecystitis without obstruction (principal)
CPT/HCPCS: 74330-TC; 88300-TC

== ENCOUNTER 2017-08-06 07:20 | Day surgery (SDC) | payer BC ==
[2017-08-06] MEDS ORDERED: ACETAMINOPHEN 325 MG TABLET (FP) PO ONE (08:00)
[2017-08-06] MEDS ORDERED: DEXAMETHASONE INJECTION 20 MG, DIPHENHYDRAMINE 25 MG in SODIUM CHLORIDE 100 ML IVPB ONE (08:00)
[2017-08-06] MEDS ORDERED: RITUXIMAB IVPB ONE (08:30)
[2017-08-06] MEDS ORDERED: SODIUM CHLORIDE IVPB ONE (08:30)
[2017-08-06 09:44] LABS: BASO % 0.5 % (0-2.0); EOS % 2.3 % (0-4.5); HEMATOCRIT 44.8 % (35.4-49); HEMOGLOBIN 14.8 GM/dL (11.7-16.9); LYMPH % 17.4 % (8-40); MCH 27.1 pg (25.7-33.7); MCHC 33.1 g/dl (32.0-35.9); MEAN PLT VOLUME 8.8 fl (7.5-11.1); MONO % 10.5 % (3.8-10.2); NEUT % 69.3 % (42.8-82.8); PLATELET COUNT 247 K/MM3 (134-434); RBC 5.46 M/mm3 (4.00-5.60); RDW 16.8 % (11.9-15.9); WHITE BLOOD COUNT 9.2 K/mm3 (4.0-10.0)
[2017-08-06 10:21] LABS: ALBUMIN 4.1 g/dl (3.4-5.0); ALK PHOS 93 U/L (45-117); BILIRUBIN,DIRECT < 0.2 mg/dL (0.0-0.2); BILIRUBIN,TOTAL 0.5 mg/dL (0.2-1.0); MAGNESIUM 2.2 mg/dL (1.8-2.4); SGOT/AST 31 U/L (15-37); SGPT/ALT 38 U/L (12-78); TOT PROT 7.1 g/dl (6.4-8.2)
[2017-08-06] MEDS ORDERED: amLODIPine BESYLATE 5 MG TABLET (FP) PO PRN (10:46)
[2017-08-06 11:02] LABS: ALBUMIN 4.1 g/dl (3.4-5.0); ANION GAP 9 (8-16); BLOOD UREA NITROGEN 20 mg/dL (7-18); CALCIUM 9.8 mg/dL (8.5-10.1); CHLORIDE 109 mmol/L (98-107); CO2 24 mmol/L (21-32); GLUCOSE,RANDOM 166 mg/dL (74-106); LDH 177 U/L (87-241); POTASSIUM 4.1 mmol/L (3.5-5.1); SGOT/AST 31 U/L (15-37); SGPT/ALT 37 U/L (12-78); SODIUM 142 mmol/L (136-145); URIC ACID 4.6 mg/dL (2.6-7.2)
[2017-08-06 11:03] LABS: ALK PHOS 95 U/L (45-117); TOT PROT 7.2 g/dl (6.4-8.2)
[2017-08-06] MEDS ORDERED: SODIUM CHLORIDE 250 ML IV ONE (13:00)
[2017-08-06 18:02] VITALS: BP 131/71; PULSE 71
[2017-08-06 18:03] VITALS: TEMP 98.5
[2017-08-07 08:07] LABS: IGA IMMUNOGLOBULIN 203 mg/dL (61-437); IGG IMMUNOGLOBULIN 508 mg/dL (700-1600); IGM IMMUNOGLOBULIN 19 mg/dL (20-172)
== END 2017-08-06 16:15 | disposition home or self-care (01) ==
LOC: JONCCHEMO 07:20 → J7W 10:04 → JONCCHEMO 16:15
PROVIDERS: ATTEND Internal Medicine Hematology & Oncology
DX: Z51.11 Encounter for antineoplastic chemotherapy (principal); C83.08 Small cell B-cell lymphoma, lymph nodes of multiple sites; E11.9 Type 2 diabetes mellitus without complications
CPT/HCPCS: 36415; 80053; 80076; 82784; 83615; 83735; 84550; 85025; 85651; 96361; 96367; 96375; 96413; 96415; J1100; J7030; J9310

== ENCOUNTER 2017-08-22 04:57 | Day surgery (SDC) | payer BC ==
[2017-08-21 08:31] VITALS: BMI 38.0
[2017-08-22] MEDS ORDERED: methylPREDNISolone ACET (DEPO) 80 MG/1 ML VIAL ONE (10:53)
[2017-08-22] MEDS ORDERED: BUPIVACAINE HCL/PF 0.25% (2.5MG/ML) 10 ML VIAL ONE (10:54)
[2017-08-22] MEDS ORDERED: LIDOCAINE HCL/PF 2% SDV 5ML VIAL ONE (11:08)
[2017-08-22] MEDS ORDERED: PROPOFOL 20 ML ONE (11:08)
[2017-08-22] MEDS ORDERED: LIDOCAINE HCL 1% PRESERVATIVE FREE - 30ML VIAL IJ ONE (11:10)
[2017-08-22] MEDS ORDERED: methylPREDNISolone ACET (DEPO) 80 MG/1 ML VIAL IJ ONE (11:10)
[2017-08-22] MEDS ORDERED: BUPIVACAINE HCL/PF 0.25% (2.5MG/ML) 10 ML VIAL IJ ONE (11:10)
[2017-08-22 12:41] VITALS: BP 137/65; PULSE 65; TEMP 98.2
--- NOTE | 2017-08-22 13:10 | OP ---
DATE OF OPERATION: DATE OF DICTATION: 08/22/2017 PROCEDURE PERFORMED: 1. Right L3-L4 epidural steroid injection. 2. Intraoperative fluoroscopy. SURGEON: Kota Ramirez MD ANESTHESIA: Local with IV sedation. ANESTHESIOLOGIST: Radha Alatorre M.D. INDICATIONS: The patient is a 62-year-old male with intractable lower back pain and lumbar radiculopathy. Because of his intractable symptoms and failure of conservative treatment, he is here for the first epidural steroid injection. CONSENT: The risks of the proceed include but are not limited to bleeding, infection, spinal headache and neurological injury. The patient understands the indications for the procedure, the procedure in detail, the risks and benefits, and alternative treatments for his lumbar condition, and wishes to proceed. No guarantees were given for a favorable outcome. DESCRIPTION OF PROCEDURE: The patient was taken to the operating room. He was placed in the prone position with a pillow under his hips. The lumbar region was cleaned with alcohol and prepped with Betadine. A skin wheal was raised with 5 mL of 1% Xylocaine. A 22-gauge spinal needle was inserted under AP and lateral fluoroscopic guidance from a right-sided approach at L3-L4. The [id number] technique was utilized, and there was no CSF or blood backflow. Depo-Medrol 80 mg and 1 mL of 0.25% Marcaine were injected. The needle was withdrawn. A sterile bandage was applied. The patient tolerated the procedure well and was turned back to a supine position, moving bilateral lower extremities well. He did not complain of a headache. KOTA RAMIREZ M.D. [id number]
== END 2017-08-22 12:30 | disposition home or self-care (01) ==
LOC: JASU-SURG 04:57
PROVIDERS: ATTEND Neurological Surgery
PROC: 3E0R33Z Introduction of Anti-inflammatory into Spinal Canal, Percutaneous Approach (ICD-10-PCS; 2017-08-22)
PROC: B01BZZZ Fluoroscopy of Spinal Cord (ICD-10-PCS; 2017-08-22)
PROC: 3E0R3BZ Introduction of Anesthetic Agent into Spinal Canal, Percutaneous Approach (ICD-10-PCS; principal; 2017-08-22 10:30)
DX: M54.16 Radiculopathy, lumbar region (principal); M54.89 Other dorsalgia
CPT/HCPCS: 76000-TC-FY; 82962

== ENCOUNTER 2017-10-01 08:24 | Day surgery (SDC) | payer BC ==
[~2017-10-01 08:24] MED LIST: SODIUM CHLORIDE 250 ML IV ONE
[2017-10-01] MEDS ORDERED: ACETAMINOPHEN 325 MG TABLET (FP) PO ONE (08:30)
[2017-10-01] MEDS ORDERED: DEXAMETHASONE INJECTION 20 MG, DIPHENHYDRAMINE 25 MG in SODIUM CHLORIDE 100 ML IVPB ONE (08:30)
[2017-10-01] MEDS ORDERED: RITUXIMAB IVPB ONE (09:00)
[2017-10-01] MEDS ORDERED: SODIUM CHLORIDE IVPB ONE (09:00)
[2017-10-01 09:36] LABS: BASO % 0.6 % (0-2.0); EOS % 2.6 % (0-4.5); HEMATOCRIT 40.9 % (35.4-49); HEMOGLOBIN 13.5 GM/dL (11.7-16.9); LYMPH % 20.8 % (8-40); MCH 27.7 pg (25.7-33.7); MCHC 33.1 g/dl (32.0-35.9); MEAN CELL VOLUME 83.7 fl (80-96); MEAN PLT VOLUME 8.9 fl (7.5-11.1); MONO % 11.7 % (3.8-10.2); NEUT % 64.3 % (42.8-82.8); PLATELET COUNT 217 K/MM3 (134-434); RBC 4.88 M/mm3 (4.00-5.60); RDW 15.9 % (11.9-15.9); WHITE BLOOD COUNT 7.1 K/mm3 (4.0-10.0)
[2017-10-01 10:43] LABS: ALBUMIN 3.8 g/dl (3.4-5.0); ANION GAP 10 (8-16); BILIRUBIN,DIRECT < 0.2 mg/dL (0.0-0.2); BLOOD UREA NITROGEN 18 mg/dL (7-18); CALCIUM 9.6 mg/dL (8.5-10.1); CHLORIDE 109 mmol/L (98-107); CO2 24 mmol/L (21-32); GLUCOSE,RANDOM 193 mg/dL (74-106); LDH 159 U/L (87-241); POTASSIUM 3.9 mmol/L (3.5-5.1); SGOT/AST 32 U/L (15-37); SGPT/ALT 44 U/L (12-78); SODIUM 143 mmol/L (136-145); TOT PROT 6.4 g/dl (6.4-8.2); URIC ACID 5.6 mg/dL (2.6-7.2)
[2017-10-01 10:44] LABS: ALK PHOS 93 U/L (45-117); BILIRUBIN,TOTAL 0.5 mg/dL (0.2-1.0)
[2017-10-01 16:22] VITALS: BP 150/93; PULSE 63; TEMP 98.4
[2017-10-02 06:17] LABS: IGA IMMUNOGLOBULIN 182 mg/dL (61-437); IGG IMMUNOGLOBULIN 466 mg/dL (700-1600); IGM IMMUNOGLOBULIN 17 mg/dL (20-172)
== END 2017-10-01 15:30 | disposition home or self-care (01) ==
LOC: JONCCHEMO 08:24 → J7W 09:26 → JONCCHEMO 15:30
PROVIDERS: ATTEND Internal Medicine Hematology & Oncology
DX: Z51.11 Encounter for antineoplastic chemotherapy (principal); C83.08 Small cell B-cell lymphoma, lymph nodes of multiple sites; E11.9 Type 2 diabetes mellitus without complications
CPT/HCPCS: 36415; 80053; 80076; 82784; 82785; 83615; 83735; 84550; 84702; 85025; 96361; 96367; 96375; 96413; 96415; J1100; J7030; J9310

== ENCOUNTER 2017-11-29 07:33 | Day surgery (SDC) | payer BC ==
[2017-11-29] MEDS ORDERED: SODIUM CHLORIDE 250 ML IV ONE (08:00)
[2017-11-29] MEDS ORDERED: DEXAMETHASONE INJECTION 20 MG, DIPHENHYDRAMINE 25 MG in SODIUM CHLORIDE 100 ML IVPB ONE (08:30)
[2017-11-29] MEDS ORDERED: ACETAMINOPHEN 325 MG TABLET (FP) PO ONE (08:30)
[2017-11-29] MEDS ORDERED: SODIUM CHLORIDE IVPB ONE (09:00)
[2017-11-29] MEDS ORDERED: RITUXIMAB IVPB ONE (09:00)
[2017-11-29 09:12] LABS: EOS % 4.1 % (0-4.5); HEMATOCRIT 41.2 % (35.4-49); HEMOGLOBIN 13.7 GM/dL (11.7-16.9); LYMPH % 20.3 % (8-40); MCH 28.5 pg (25.7-33.7); MCHC 33.3 g/dl (32.0-35.9); MEAN CELL VOLUME 85.5 fl (80-96); MONO % 9.1 % (3.8-10.2); NEUT % 65.5 % (42.8-82.8); PLATELET COUNT 244 K/MM3 (134-434); RBC 4.82 M/mm3 (4.00-5.60); RDW 15.4 % (11.9-15.9); WHITE BLOOD COUNT 8.4 K/mm3 (4.0-10.0)
[2017-11-29 09:36] LABS: ALBUMIN 3.9 g/dl (3.4-5.0); ANION GAP 10 MMOL/L (8-16); BLOOD UREA NITROGEN 19 mg/dL (7-18); CALCIUM 9.7 mg/dL (8.5-10.1); CHLORIDE 110 mmol/L (98-107); CO2 23 mmol/L (21-32); GLUCOSE,RANDOM 149 mg/dL (74-106); MAGNESIUM 2.1 mg/dL (1.8-2.4); POTASSIUM 4.4 mmol/L (3.5-5.1); SGOT/AST 31 U/L (15-37); SGPT/ALT 33 U/L (13-61); SODIUM 143 mmol/L (136-145)
[2017-11-29 09:38] LABS: ALK PHOS 106 U/L (45-117); BILIRUBIN,TOTAL 0.4 mg/dL (0.2-1.0); CREATININE 0.9 mg/dL (0.7-1.3); TOT PROT 6.7 g/dl (6.4-8.2)
[2017-11-29 09:40] LABS: BILIRUBIN,DIRECT 0.2 mg/dL (0.0-0.2); BILIRUBIN,TOTAL 0.4 mg/dL (0.2-1.0); TOT PROT 6.6 g/dl (6.4-8.2)
[2017-11-29 16:19] VITALS: BP 131/80; PULSE 74; TEMP 98.6
== END 2017-11-29 15:40 | disposition home or self-care (01) ==
LOC: JONCCHEMO 07:33 → J7W 09:27 → JONCCHEMO 15:40
PROVIDERS: ATTEND Internal Medicine Hematology & Oncology
DX: Z51.11 Encounter for antineoplastic chemotherapy (principal); C83.08 Small cell B-cell lymphoma, lymph nodes of multiple sites; E11.9 Type 2 diabetes mellitus without complications
CPT/HCPCS: 36415; 80053; 80076; 83735; 85025; 96361; 96367; 96375; 96413; 96415; J1100; J7030; J9310

== ENCOUNTER 2024-05-26 17:00 | Inpatient (IN) | payer MEDICARE ==
[2024-05-26] MEDS ORDERED: ALBUTEROL SO4 2.5/IPRATROPIUM 0.5 INH SOL 3 ML VIAL.NEB. NEB ONE (17:10)
[2024-05-26] MEDS ORDERED: PIPERACILLIN/TAZOB 4.5 GM 4.5 GM/100 ML BAG IVPB ONE (17:16)
[2024-05-26 17:38] LABS: HEMATOCRIT 39.2 % (35.4-49); HEMOGLOBIN 12.9 GM/dL (11.7-16.9); MCH 29.8 pg (25.7-33.7); MEAN CELL VOLUME 90.5 fl (80-96); MEAN PLT VOLUME 8.6 fl (7.5-11.1); PLATELET COUNT 166 10^3/uL (134-434); RBC 4.33 M/mm3 (4.00-5.60); RDW 16.6 % (11.9-15.9); WHITE BLOOD COUNT 12.4 K/mm3 (4.0-10.0)
[2024-05-26 17:46] LABS: VENOUS BASE EXCESS -6.7 mmol/L (-2-2); VENOUS O2 SATURATION 86.8 % (70-80); VENOUS PH 7.32 (7.310-7.410)
[2024-05-26 17:56] LABS: POTASSIUM 5.1 mmol/L (3.5-5.1)
[2024-05-26 17:58] LABS: CALCIUM 8.8 mg/dL (8.5-10.1)
[2024-05-26 17:59] LABS: ALBUMIN 3.2 g/dl (3.4-5.0); BLOOD UREA NITROGEN 28.5 mg/dL (7-18)
[2024-05-26 18:02] LABS: CREATININE 1.5 mg/dL (0.55-1.3)
[2024-05-26 18:03] LABS: BILIRUBIN,TOTAL 1.1 mg/dL (0.2-1); TOT PROT 6.1 g/dl (6.4-8.2)
[2024-05-26 18:06] LABS: N-TERMINAL BNP 1758.6 pg/ml (5-125)
[2024-05-26 18:09] LABS: ANISOCYTOSIS 0; MACROCYTOSIS 0
[2024-05-26] MEDS: PIPERACILLIN/TAZOB 4.5 GM 4.5 GM in DEXTROSE 5%-WATER 100 ML IVPB ONE (18:57)
[2024-05-26] MEDS ORDERED: VANCOMYCIN 1 GM PREMIX (F) 1 GM/200 ML BAG ONE (19:33)
[2024-05-26] MEDS: VANCOMYCIN 1,000 MG in DEXTROSE 5%-WATER - 250 ML IVPB ONE (19:34)
[2024-05-27 04:46] LABS: ARTERIAL BLD GAS O2 SATURATION 95.7 % (95-98); ARTERIAL BLOOD GAS BASE EXCESS -3.9 mmol/L (-2-2); ARTERIAL BLOOD GAS PO2 78.4 mmHg (80-100)
[2024-05-27 04:53] LABS: ALLENS TEST POSITIVE
[2024-05-27] MEDS: SODIUM CHLORIDE 1,000 ML IV SCH (05:12)
[2024-05-27] MEDS: INSULIN ASPART SLIDING SCALE (NOVOLOG) 1 VIAL SQ SCH ×2 (06:24→17:01)
[2024-05-27] MEDS: HEPARIN NA (PORCINE) 5,000 UNITS/ML 1ML VIAL SQ SCH (06:25)
[2024-05-27] MEDS ORDERED: INSULIN ASPART SLIDING SCALE (NOVOLOG) 1 VIAL SQ SCH (07:00)
[2024-05-27 08:53] LABS: BASO % 0.1 % (0-2.0); EOS % 0.2 % (0-4.5); HEMOGLOBIN 11.3 GM/dL (11.7-16.9); LYMPH % 18.6 % (8-40); MCH 30.2 pg (25.7-33.7); MCHC 33.3 g/dl (32.0-35.9); MEAN CELL VOLUME 90.7 fl (80-96); MONO % 2.8 % (3.8-10.2); NEUT % 78.3 % (42.8-82.8); PLATELET COUNT 143 10^3/uL (134-434); RBC 3.74 M/mm3 (4.00-5.60); RDW 16.1 % (11.9-15.9)
[2024-05-27 09:07] LABS: POTASSIUM 4.2 mmol/L (3.5-5.1)
[2024-05-27 09:08] LABS: CALCIUM 8.5 mg/dL (8.5-10.1)
[2024-05-27 09:09] LABS: BLOOD UREA NITROGEN 36.8 mg/dL (7-18)
[2024-05-27 09:12] LABS: CREATININE 1.5 mg/dL (0.55-1.3)
[2024-05-27] MEDS: CEFTRIAXONE 1 G/50 ML PREMIX 50 ML IVPB ONE (10:26)
[2024-05-27] MEDS: AZITHROMYCIN 250 MG TABLET PO ONE (10:26)
[2024-05-27] MEDS: ALBUTEROL SO4 2.5/IPRATROPIUM 0.5 INH SOL 3 ML VIAL.NEB. NEB SCH (11:17)
[2024-05-27] MEDS: INSULIN (LEVEMIR) 100 UNITS/ML UNITS SQ SCH (11:38)
[2024-05-27] MEDS: FUROSEMIDE 40 MG/4 ML INJECTABLE VIAL IVPUSH SCH (11:51)
[2024-05-27] MEDS: DOXYCYCLINE INJECTION 100 MG in DEXTROSE 5%-WATER 100 ML IVPB SCH (11:51)
[2024-05-27] MEDS: AMPICILLIN NA/SULBACTAM NA 1.5 GM in SODIUM CHLORIDE 100 ML IVPB SCH ×2 (12:09→14:40)
[2024-05-27] MEDS: NYSTATIN 100,000 UNIT/GM TOPICAL CREAM 15 GM TUBE TP SCH (12:10)
[2024-05-27] MEDS: INSULIN (LEVEMIR) 100 UNITS/ML UNITS SQ ONE (19:51)
[2024-05-27] MEDS: CEFTRIAXONE 1,000 MG in DEXTROSE 5%-WATER - 50 ML IVPB ONE (19:52)
[2024-05-27] MEDS: ZINC OXIDE 20% TOPICAL OINTMENT 30 GM TUBE TP SCH (22:32)
[2024-05-27] MEDS ORDERED: INSULIN GLARGINE (LANTUS) 100 UNITS/ML UNITS SQ SCH (22:43)
[2024-05-27] MEDS ORDERED: INSULIN (LEVEMIR) 100 UNITS/ML UNITS SQ SCH (22:43)
[2024-05-27] MEDS: INSULIN GLARGINE (LANTUS) 100 UNITS/ML UNITS SQ SCH (22:45)
[2024-05-28 07:24] LABS: HEMATOCRIT 33.9 % (35.4-49); HEMOGLOBIN 10.9 GM/dL (11.7-16.9); MCH 29.7 pg (25.7-33.7); MCHC 32.2 g/dl (32.0-35.9); MEAN CELL VOLUME 92.3 fl (80-96); MEAN PLT VOLUME 8.5 fl (7.5-11.1); PLATELET COUNT 165 10^3/uL (134-434); RBC 3.67 M/mm3 (4.00-5.60); RDW 16.4 % (11.9-15.9); WHITE BLOOD COUNT 9.9 K/mm3 (4.0-10.0)
[2024-05-28 07:29] LABS: INR 1.22 (0.83-1.09); PROTHROMBIN TIME (PATIENT) 13.3 SEC (9.7-13.0)
[2024-05-28 07:45] LABS: POTASSIUM 4.5 mmol/L (3.5-5.1)
[2024-05-28 07:47] LABS: BLOOD UREA NITROGEN 39.3 mg/dL (7-18); CALCIUM 8.8 mg/dL (8.5-10.1); MAGNESIUM 2.7 mg/dL (1.8-2.4)
[2024-05-28 07:50] LABS: CREATININE 1.3 mg/dL (0.55-1.3)
[2024-05-28 07:51] LABS: PHOSPHOROUS 3.9 mg/dL (2.5-4.9)
[2024-05-28 07:52] LABS: TOT PROT 5.6 g/dl (6.4-8.2)
[2024-05-28 09:15] LABS: EPI CELLS 12 /uL (0-25.1); HYALINE CASTS 3 /uL (0-3.1); URINE APPEARANCE CLOUDY; URINE BACTERIA 1 /uL (0-1359); URINE BILIRUBIN NEGATIVE (NEGATIVE); URINE COLOR YELLOW; URINE GLUCOSE (UA) NEGATIVE (NEGATIVE); URINE KETONE NEGATIVE (NEGATIVE); URINE LEUK ESTERASE NEGATIVE (NEGATIVE); URINE NITRITE NEGATIVE (NEGATIVE); URINE PROTEIN 1+ (NEGATIVE); URINE RBC 19 /uL (0-23.9); URINE WBC 19 /uL (0-25.8)
[2024-05-28 09:33] LABS: URIC ACID 10.3 mg/dL (2.6-7.2)
[2024-05-28] MEDS ORDERED: AZITHROMYCIN 250 MG TABLET PO SCH (10:00)
[2024-05-28] MEDS: amLODIPine BESYLATE 5 MG TABLET (FP) PO SCH (10:03)
[2024-05-28 11:30] LABS: ANISOCYTOSIS 0; HELMET CELLS 0; HOWELL-JOLLY BODIES 0; MACROCYTOSIS 0; OVALOCYTE 0; ROULEAU 0; SICKELED CELLS 0; TARGET CELLS 0; TEAR DROP CELLS 0; TOXIC GRANULATION 0
[2024-05-28 11:50] LABS: HCV DIAGNOSTIC IN-HOUSE W/RFLX NON-REACTIVE (NONREACTIVE)
[2024-05-28 15:24] LABS: BF WBC & OTHER NUCLEATED CELLS 3979 /mm3; BODY FLUID MESOTHELIAL 15 %; BODY FLUID MONOCYTE 32 %
[2024-05-28] MEDS: VANCOMYCIN PREMIX 1.5 GM 1,500 MG/300 ML BAG IVPB SCH (15:29)
[2024-05-28] MEDS: PIPERACILLIN/TAZOB 3.375 GM 50 ML IVPB SCH (18:23)
[2024-05-28] MEDS: HEPARIN NA (PORCINE) 5,000 UNITS/ML 1ML VIAL SQ SCH (18:23)
[2024-05-29 07:10] LABS: HEMATOCRIT 32.3 % (35.4-49); HEMOGLOBIN 10.5 GM/dL (11.7-16.9); MCH 29.9 pg (25.7-33.7); MCHC 32.6 g/dl (32.0-35.9); MEAN CELL VOLUME 91.9 fl (80-96); MEAN PLT VOLUME 8.4 fl (7.5-11.1); PLATELET COUNT 174 10^3/uL (134-434); RBC 3.51 M/mm3 (4.00-5.60); RDW 16.2 % (11.9-15.9); WHITE BLOOD COUNT 7.9 K/mm3 (4.0-10.0)
[2024-05-29 07:24] LABS: POTASSIUM 4.5 mmol/L (3.5-5.1)
[2024-05-29 07:37] LABS: ALBUMIN 2.6 g/dl (3.4-5.0); CALCIUM 8.6 mg/dL (8.5-10.1); MAGNESIUM 2.6 mg/dL (1.8-2.4)
[2024-05-29 07:38] LABS: BLOOD UREA NITROGEN 44.1 mg/dL (7-18)
[2024-05-29 07:40] LABS: BILIRUBIN,TOTAL 0.9 mg/dL (0.2-1); CREATININE 1.4 mg/dL (0.55-1.3); PHOSPHOROUS 4.6 mg/dL (2.5-4.9)
[2024-05-29] MEDS: VANCOMYCIN HCL IN 5 % DEXTROSE 1,500 MG/300 ML BAG IVPB SCH (10:54)
[2024-05-29] MEDS: VANCOMYCIN HCL 1,500 MG in DEXTROSE 5%-WATER - 500 ML IVPB SCH (13:59)
[2024-05-29 14:08] LABS: BODY FLUID ALBUMIN 2.7 g/dL (Not Estab.)
[2024-05-29] MEDS: PIPERACILLIN/TAZOB 3.375 GM 3.375 GM in DEXTROSE 5%-WATER - 50 ML IVPB SCH (17:42)
[2024-05-29] MEDS: PIPERACILLIN/TAZOB 3.375 GM 50 ML IVPB SCH (17:48)
[2024-05-29] MEDS: VANCOMYCIN/WATER FOR INJ (PEG) 1,000 MG/200 ML BAG IVPB SCH (21:52)
[2024-05-29] MEDS ORDERED: VANCOMYCIN HCL 1,500 MG in DEXTROSE 5%-WATER - 500 ML IVPB SCH (23:00)
[2024-05-29] MEDS ORDERED: VANCOMYCIN HCL IN 5 % DEXTROSE 1,500 MG/300 ML BAG IVPB SCH (23:00)
[2024-05-30] MEDS: ACETAMINOPHEN 325 MG TABLET (FP) PO PRN (02:54)
[2024-05-30 07:17] LABS: HEMATOCRIT 34.6 % (35.4-49); HEMOGLOBIN 11.4 GM/dL (11.7-16.9); MCH 30.4 pg (25.7-33.7); MCHC 32.9 g/dl (32.0-35.9); MEAN CELL VOLUME 92.3 fl (80-96); MEAN PLT VOLUME 8.2 fl (7.5-11.1); PLATELET COUNT 213 10^3/uL (134-434); RBC 3.75 M/mm3 (4.00-5.60); RDW 15.7 % (11.9-15.9); WHITE BLOOD COUNT 8.4 K/mm3 (4.0-10.0)
[2024-05-30 07:22] LABS: POTASSIUM 4.4 mmol/L (3.5-5.1)
[2024-05-30 07:32] LABS: ALBUMIN 2.6 g/dl (3.4-5.0); BLOOD UREA NITROGEN 41.8 mg/dL (7-18); CALCIUM 8.7 mg/dL (8.5-10.1); MAGNESIUM 2.7 mg/dL (1.8-2.4)
[2024-05-30 07:34] LABS: CREATININE 1.4 mg/dL (0.55-1.3)
[2024-05-30 07:35] LABS: PHOSPHOROUS 4.8 mg/dL (2.5-4.9)
[2024-05-30 07:36] LABS: BILIRUBIN,TOTAL 0.7 mg/dL (0.2-1); TOT PROT 5.2 g/dl (6.4-8.2)
[2024-05-30] MEDS: FUROSEMIDE 40 MG TABLET (FP) PO SCH (09:26)
[2024-05-30] MEDS ORDERED: MIDAZOLAM HCL 2 MG/2 ML SINGLE DOSE VIAL ONE (13:15)
[2024-05-30] MEDS ORDERED: FENTANYL CITRATE/PF 50 MCG/ML VIAL ONE (13:16)
[2024-05-31 07:25] LABS: BASO % 0.3 % (0-2.0); EOS % 2.3 % (0-4.5); HEMATOCRIT 33.4 % (35.4-49); MCH 30.1 pg (25.7-33.7); MEAN CELL VOLUME 91.3 fl (80-96); MEAN PLT VOLUME 8.2 fl (7.5-11.1); MONO % 1.8 % (3.8-10.2); NEUT % 75.6 % (42.8-82.8); PLATELET COUNT 236 10^3/uL (134-434); RBC 3.66 M/mm3 (4.00-5.60); RDW 15.6 % (11.9-15.9); WHITE BLOOD COUNT 7.5 K/mm3 (4.0-10.0)
[2024-05-31 07:41] LABS: POTASSIUM 4.2 mmol/L (3.5-5.1)
[2024-05-31 07:43] LABS: MAGNESIUM 2.5 mg/dL (1.8-2.4)
[2024-05-31 07:44] LABS: CALCIUM 8.7 mg/dL (8.5-10.1)
[2024-05-31 07:45] LABS: ALBUMIN 2.3 g/dl (3.4-5.0); BLOOD UREA NITROGEN 38.3 mg/dL (7-18)
[2024-05-31 07:46] LABS: CREATININE 1.4 mg/dL (0.55-1.3); URIC ACID 7.6 mg/dL (2.6-7.2)
[2024-05-31 07:47] LABS: BILIRUBIN,DIRECT 0.2 mg/dL (0.0-0.2); PHOSPHOROUS 3.4 mg/dL (2.5-4.9)
[2024-05-31 07:48] LABS: TOT PROT 4.6 g/dl (6.4-8.2)
[2024-05-31 07:49] LABS: BILIRUBIN,TOTAL 0.5 mg/dL (0.2-1)
[2024-05-31] MEDS: ALLOPURINOL 100 MG TABLET (FP) PO SCH (09:13)
[2024-05-31] MEDS: VANCOMYCIN/WATER FOR INJ (PEG) 1,000 MG/200 ML BAG IVPB SCH (09:13)
[2024-05-31] MEDS ORDERED: VANCOMYCIN/WATER FOR INJ (PEG) 750 MG/150 ML BAG IVPB SCH (10:00)
[2024-05-31] MEDS: CEFTRIAXONE 2 GM-D5W BAG 2 GM/50 ML BAG IVPB SCH (15:24)
[2024-06-01 07:57] LABS: POTASSIUM 4.5 mmol/L (3.5-5.1)
[2024-06-01 07:58] LABS: HEMATOCRIT 32.2 % (35.4-49); HEMOGLOBIN 10.8 GM/dL (11.7-16.9); MCH 30.5 pg (25.7-33.7); MCHC 33.5 g/dl (32.0-35.9); MEAN CELL VOLUME 90.8 fl (80-96); MEAN PLT VOLUME 8.2 fl (7.5-11.1); PLATELET COUNT 252 10^3/uL (134-434); RBC 3.55 M/mm3 (4.00-5.60); RDW 15.7 % (11.9-15.9); WHITE BLOOD COUNT 7.5 K/mm3 (4.0-10.0)
[2024-06-01 07:59] LABS: CALCIUM 8.8 mg/dL (8.5-10.1)
[2024-06-01 08:00] LABS: BLOOD UREA NITROGEN 32.9 mg/dL (7-18)
[2024-06-01 16:23] VITALS: BMI 29.0
[2024-06-02 07:30] LABS: HEMATOCRIT 34.5 % (35.4-49); HEMOGLOBIN 11.4 GM/dL (11.7-16.9); MCH 30.1 pg (25.7-33.7); MEAN CELL VOLUME 91.3 fl (80-96); MEAN PLT VOLUME 8.1 fl (7.5-11.1); PLATELET COUNT 288 10^3/uL (134-434); RBC 3.77 M/mm3 (4.00-5.60); RDW 16.1 % (11.9-15.9); WHITE BLOOD COUNT 8.4 K/mm3 (4.0-10.0)
[2024-06-02 08:19] LABS: BLOOD UREA NITROGEN 28.7 mg/dL (7-18)
[2024-06-02 08:22] LABS: CREATININE 0.8 mg/dL (0.55-1.3); MAGNESIUM 2.4 mg/dL (1.8-2.4)
[2024-06-02 08:23] LABS: PHOSPHOROUS 2.4 mg/dL (2.5-4.9); URIC ACID 5.8 mg/dL (2.6-7.2)
[2024-06-03 07:30] LABS: MAGNESIUM 2.3 mg/dL (1.8-2.4)
[2024-06-03 07:33] LABS: URIC ACID 6.2 mg/dL (2.6-7.2)
[2024-06-03] MEDS: ALBUTEROL SO4 2.5/IPRATROPIUM 0.5 INH SOL 3 ML VIAL.NEB. NEB SCH (20:05)
[2024-06-03] MEDS: HEPARIN NA (PORCINE) 5,000 UNITS/ML 1ML VIAL SQ SCH (22:20)
[2024-06-03] MEDS: INSULIN GLARGINE (LANTUS) 100 UNITS/ML UNITS SQ SCH (22:21)
[2024-06-03] MEDS: NYSTATIN 100,000 UNIT/GM TOPICAL CREAM 15 GM TUBE TP SCH (22:22)
[2024-06-03] MEDS: ZINC OXIDE 20% TOPICAL OINTMENT 30 GM TUBE TP SCH (22:23)
[2024-06-04] MEDS: INSULIN ASPART SLIDING SCALE (NOVOLOG) 1 VIAL SQ SCH (06:03)
[2024-06-04 09:31] LABS: HEMATOCRIT 36.8 % (40.1-51.0); HEMOGLOBIN 11.4 g/dL (13.7-17.5); MEAN CELL VOLUME 95.8 fl (79.0-92.2); MEAN PLT VOLUME 10.2 fl (9.4-12.4); PLATELET COUNT # 365 x10^3/uL (163-337); RDW 15.3 % (12.2-16.6)
[2024-06-04 09:47] LABS: POTASSIUM 4.5 mmol/L (3.5-5.1)
[2024-06-04] MEDS: CEFTRIAXONE 2 GM-D5W BAG 2 GM/50 ML BAG IVPB SCH (09:51)
[2024-06-04] MEDS: ALLOPURINOL 100 MG TABLET (FP) PO SCH (09:52)
[2024-06-04] MEDS: amLODIPine BESYLATE 5 MG TABLET (FP) PO SCH (09:52)
[2024-06-04 10:00] LABS: ALBUMIN 2.3 g/dl (3.4-5.0); BLOOD UREA NITROGEN 25.5 mg/dL (7-18); MAGNESIUM 2.4 mg/dL (1.8-2.4)
[2024-06-04 10:02] LABS: CREATININE 0.9 mg/dL (0.55-1.3); URIC ACID 7.1 mg/dL (2.6-7.2)
[2024-06-04 10:03] LABS: PHOSPHOROUS 3.1 mg/dL (2.5-4.9)
[2024-06-04 10:04] LABS: BILIRUBIN,TOTAL 0.6 mg/dL (0.2-1); TOT PROT 4.6 g/dl (6.4-8.2)
[2024-06-04] MEDS: SODIUM CHLORIDE 500 ML IV STA (15:09)
[2024-06-05 08:46] LABS: ABSOLUTE IMMATURE GRANULOCYTES 0.05 x10^3/uL (0.0-0.031); BASOPHILS # 0.03 x10^3/uL (0.01-0.08); EOSINOPHIL % 1.9 % (0.8-7.0); EOSINOPHILS # 0.19 x10^3/uL (0.04-0.54); HEMATOCRIT 36.2 % (40.1-51.0); HEMOGLOBIN 11.2 g/dL (13.7-17.5); MCHC 30.9 g/dl (32.3-36.5); MEAN CELL VOLUME 94.8 fl (79.0-92.2); MEAN PLT VOLUME 9.7 fl (9.4-12.4); MONOCYTE # 0.26 x10^3/uL (0.30-0.82); MONOCYTE % 2.6 % (5.3-12.2); PLATELET COUNT # 361 x10^3/uL (163-337); RDW 15.5 % (12.2-16.6)
[2024-06-05 09:05] LABS: POTASSIUM 4.5 mmol/L (3.5-5.1)
[2024-06-05 09:12] LABS: CALCIUM 8.9 mg/dL (8.5-10.1)
[2024-06-05 09:13] LABS: MAGNESIUM 2.5 mg/dL (1.8-2.4)
[2024-06-05 09:16] LABS: CREATININE 0.8 mg/dL (0.55-1.3); PHOSPHOROUS 3.1 mg/dL (2.5-4.9)
[2024-06-05] MEDS: SODIUM CHLORIDE 1,000 ML IV SCH (11:43)
[2024-06-06] MEDS: BENZONATATE 200 MG CAPSULE PO PRN (01:35)
[2024-06-06 09:49] LABS: ABSOLUTE IMMATURE GRANULOCYTES 0.04 x10^3/uL (0.0-0.031); BASOPHILS # 0.04 x10^3/uL (0.01-0.08); EOSINOPHIL % 2.4 % (0.8-7.0); EOSINOPHILS # 0.19 x10^3/uL (0.04-0.54); HEMATOCRIT 35.6 % (40.1-51.0); MCHC 30.9 g/dl (32.3-36.5); MEAN CELL VOLUME 95.4 fl (79.0-92.2); MEAN PLT VOLUME 9.8 fl (9.4-12.4); MONOCYTE # 0.29 x10^3/uL (0.30-0.82); MONOCYTE % 3.6 % (5.3-12.2); PLATELET COUNT # 365 x10^3/uL (163-337); RDW 15.7 % (12.2-16.6)
[2024-06-06 10:13] LABS: POTASSIUM 4.5 mmol/L (3.5-5.1)
[2024-06-06 10:29] LABS: ALBUMIN 2.2 g/dl (3.4-5.0); CALCIUM 8.5 mg/dL (8.5-10.1)
[2024-06-06 10:30] LABS: BLOOD UREA NITROGEN 22.8 mg/dL (7-18)
[2024-06-06 10:33] LABS: CREATININE 0.8 mg/dL (0.55-1.3)
[2024-06-06 10:34] LABS: BILIRUBIN,TOTAL 0.4 mg/dL (0.2-1); TOT PROT 4.4 g/dl (6.4-8.2)
[2024-06-06] MEDS: SODIUM CHLORIDE 500 ML IV STA (15:47)
[2024-06-07 12:29] LABS: ABSOLUTE IMMATURE GRANULOCYTES 0.04 x10^3/uL (0.0-0.031); BASOPHILS # 0.04 x10^3/uL (0.01-0.08); EOSINOPHIL % 2.7 % (0.8-7.0); HEMOGLOBIN 11.3 g/dL (13.7-17.5); MCHC 31.4 g/dl (32.3-36.5); MEAN CELL VOLUME 95.7 fl (79.0-92.2); MEAN PLT VOLUME 9.8 fl (9.4-12.4); MONOCYTE # 0.31 x10^3/uL (0.30-0.82); MONOCYTE % 4.2 % (5.3-12.2); PLATELET COUNT # 399 x10^3/uL (163-337); RDW 15.5 % (12.2-16.6)
[2024-06-07 12:53] LABS: BLOOD UREA NITROGEN 19.9 mg/dL (7-18); CALCIUM 8.5 mg/dL (8.5-10.1); POTASSIUM 4.4 mmol/L (3.5-5.1)
[2024-06-07 12:55] LABS: URIC ACID 6.7 mg/dL (2.6-7.2)
[2024-06-07 12:56] LABS: CREATININE 0.7 mg/dL (0.55-1.3); PHOSPHOROUS 3.2 mg/dL (2.5-4.9)
[2024-06-07 13:03] LABS: MAGNESIUM 2.4 mg/dL (1.8-2.4)
[2024-06-08 02:35] VITALS: RESP 18
[2024-06-08] MEDS: guaiFENesin/D-METHORPHAN TAB.ER.12H PO SCH (11:21)
[2024-06-09 08:31] LABS: ABSOLUTE IMMATURE GRANULOCYTES 0.03 x10^3/uL (0.0-0.031); BASOPHILS # 0.06 x10^3/uL (0.01-0.08); EOSINOPHIL % 3.2 % (0.8-7.0); EOSINOPHILS # 0.25 x10^3/uL (0.04-0.54); HEMATOCRIT 38.5 % (40.1-51.0); HEMOGLOBIN 11.7 g/dL (13.7-17.5); MCHC 30.4 g/dl (32.3-36.5); MEAN CELL VOLUME 95.8 fl (79.0-92.2); MEAN PLT VOLUME 9.4 fl (9.4-12.4); MONOCYTE # 0.35 x10^3/uL (0.30-0.82); MONOCYTE % 4.5 % (5.3-12.2); PLATELET COUNT # 391 x10^3/uL (163-337); RDW 15.6 % (12.2-16.6)
[2024-06-09 08:40] LABS: INR 1.13 (0.83-1.09); PROTHROMBIN TIME (PATIENT) 12.4 SEC (9.7-13.0)
[2024-06-09 09:00] LABS: POTASSIUM 4.7 mmol/L (3.5-5.1)
[2024-06-09 09:53] LABS: BILIRUBIN,TOTAL 0.3 mg/dL (0.2-1)
[2024-06-09 09:56] LABS: ALBUMIN 2.2 g/dl (3.4-5.0); BLOOD UREA NITROGEN 21.4 mg/dL (7-18); CALCIUM 8.5 mg/dL (8.5-10.1)
[2024-06-09 09:57] LABS: MAGNESIUM 2.4 mg/dL (1.8-2.4); URIC ACID 6.1 mg/dL (2.6-7.2)
[2024-06-09 09:58] LABS: CREATININE 0.9 mg/dL (0.55-1.3)
[2024-06-09 09:59] LABS: TOT PROT 4.6 g/dl (6.4-8.2)
[2024-06-09 20:54] VITALS: BP 133/59; PULSE 65; TEMP 97.8
[2024-06-09] MEDS: ACETAMINOPHEN 325 MG TABLET (FP) PO PRN (21:09)
== END 2024-06-09 21:24 | disposition short-term general hospital (02) | DRG 840 ==
LOC: JER 17:00 → JERBED 22:32 → J4W 05-27 02:35 → J5S 06-03 18:11
PROVIDERS: ADMIT Student in an Organized Health Care Education/Training Program; ATTEND Internal Medicine
PROC: 0W9B30Z Drainage of Left Pleural Cavity with Drainage Device, Percutaneous Approach (ICD-10-PCS; principal; 2024-05-28)
PROC: 0W993ZZ Drainage of Right Pleural Cavity, Percutaneous Approach (ICD-10-PCS; 2024-05-28)
PROC: 0D9 Gastrointestinal System, Drainage (ICD-10-PCS; 2024-05-30)
DX: C83.00 Small cell B-cell lymphoma, unspecified site (principal); I50.31 Acute diastolic (congestive) heart failure; J96.01 Acute respiratory failure with hypoxia; L03.116 Cellulitis of left lower limb; J94.0 Chylous effusion; E87.20 Acidosis, unspecified; E11.9 Type 2 diabetes mellitus without complications; I11.0 Hypertensive heart disease with heart failure; L30.4 Erythema intertrigo; L89.152 Pressure ulcer of sacral region, stage 2; D72.829 Elevated white blood cell count, unspecified
CPT/HCPCS: 0241U-QW; 32557; 36415; 36600; 49180; 71045-TC-FY; 71275-TC; 74174-TC; 76942; 77012-TC; 80048; 80053; 80061; 80076; 81003; 82010; 82042; 82150; 82803; 82945; 82955; 82962; 83036; 83605; 83615; 83690; 83735; 83880; 83986; 84100; 84157; 84478; 84484; 84550; 85025; 85027; 85610; 86704; 86708; 86803; 87040; 87070; 87075; 87076; 87081; 87102; 87116; 87186; 87205; 87206; 87210; 87340; 87517; 87633; 87635; 87804; 87807; 87899; 88108; 88305-TC; 93005; 93010; 93306-TC; 93971-TC; 94150; 94640; 94660; 97116-GP; 97162-GP; 99285-25; G0480; J1644; Q9967